=== PATIENT | female | born 1945 | race Caucasian/White ===

== ENCOUNTER 2017-09-08 17:40 | Inpatient (IN) | payer MEDICARE ==
[2017-09-08] MEDS ORDERED: SODIUM CHLORIDE 0.9% 1,000 ML IV ONE (18:13)
[2017-09-08 18:31] LABS: Basophils % (A) 0 %; Eosinophils # (A) 0.2 k/uL (0-0.7); Eosinophils % (A) 2 %; HCT 31.9 % (34.0-46.0); HGB 10.6 gm/dL (11.4-16.0); Lymphocytes % (A) 13 %; MCH 30.1 pg (25.0-35.0); MCHC 33.1 g/dL (31.0-37.0); MCV 91.1 fL (80.0-100.0); Mean Platelet Volume 7.8; Monocytes # (A) 0.3 k/uL (0-1.0); Monocytes % (A) 4 %; Neutrophils # (A) 6.1 k/uL (1.3-7.7); Neutrophils % (A) 80 %; Platelet Count 371 k/uL (150-450); RBC 3.51 m/uL (3.80-5.40); RDW 14.2 % (11.5-15.5); WBC 7.7 k/uL (3.8-10.6)
--- NOTE | 2017-09-08 18:43 | XR ---
EXAMINATION TYPE: XR chest 2V DATE OF EXAM: 09/08/2017 COMPARISON: NONE HISTORY: Syncope. Chest pain. TECHNIQUE: Frontal and lateral views of the chest are obtained. FINDINGS: There is no heart failure nor confluent pneumonic infiltrate. Costophrenic angles are kelsey r. Heart size is normal. Thoracic aorta is atheromatous. There are chest leads. IMPRESSION: No active cardiopulmonary disease.
[2017-09-08 18:44] LABS: Albumin 4.2 g/dL (3.5-5.0); Calcium 10.1 mg/dL (8.4-10.2); Magnesium 1.5 mg/dL (1.6-2.3); Potassium 4.6 mmol/L (3.5-5.1); Total Bilirubin 0.6 mg/dL (0.2-1.3); Total Protein 6.4 g/dL (6.3-8.2)
[2017-09-08 18:52] LABS: Prothrombin Time 10.1 sec (9.0-12.0)
[2017-09-08 18:55] LABS: Partial Thromboplastin Time 19.4 sec (22.0-30.0)
[2017-09-08 18:58] LABS: Creatine Kinase MB 0.8 ng/mL (0.0-2.4); Troponin I <0.012 ng/mL (0.000-0.034)
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
[2017-09-08] MEDS ORDERED: PANTOPRAZOLE 40 MG/10 ML VIAL IVP ONE (20:13)
[2017-09-08] MEDS ORDERED: NALOXONE 0.4 MG/ML 1 ML VIAL IV PRN (20:16)
[2017-09-08] MEDS ORDERED: ACETAMINOPHEN TAB 325 MG TAB PO PRN (21:22)
[2017-09-08 21:41] LABS: Appearance,Urine Clear (Clear); Bacteria,Urine Occasional /hpf; Bilirubin,Urine Negative (Negative); Blood,Urine Negative (Negative); Color,Urine Light Yellow; Glucose,Urine (UA) Negative (Negative); Hyaline Casts,Urine 5 /lpf (0-2); Ketones,Urine Negative (Negative); Leukocyte Esterase,Urine Small (Negative); Mucus,Urine Rare /hpf; Nitrite,Urine Positive (Negative); Protein,Urine Negative (Negative); RBC,Urine 4 /hpf (0-5); Specific Gravity,Urine 1.009 (1.001-1.035); Squamous Epithelial Cell,Urine <1 /hpf (0-4); Urobilinogen,Urine <2.0 mg/dL (<2.0); WBC,Urine 16 /hpf (0-5)
[2017-09-08 21:41] LABS: Glucose,Whole Blood 115 mg/dL (75-99)
[2017-09-08 21:44] VITALS: BMI 28.2
[2017-09-08 21:45] LABS: Amphetamine Screen,Urine Not Detected (NotDetected); Barbiturate Screen,Urine Not Detected (NotDetected); Benzodiazepines Screen,Urine Not Detected (NotDetected); Cocaine Screen,Urine Not Detected (NotDetected); Methadone Screen, Urine Not Detected (NotDetected); Opiate Screen,Urine Not Detected (NotDetected); Oxycodone Screen, Urine Not Detected (NotDetected); Phencyclidine Screen,Urine Not Detected (NotDetected); Tricyclic Antidepressant,Urine Not Detected (NotDetected); Urn Cannabinoid Scrn Not Detected (NotDetected)
[2017-09-08] MEDS ORDERED: MAGNESIUM SULFATE-D5W PMX 1 GM in DEXTROSE/WATER 1 100ML.BAG IVPB ONE (22:13)
[2017-09-08] MEDS: SODIUM CHLORIDE 0.9% 1,000 ML IV SCH (22:15)
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
[2017-09-09 00:14] LABS: HCT 27.7 % (34.0-46.0); HGB 9.2 gm/dL (11.4-16.0); MCHC 33.3 g/dL (31.0-37.0); MCV 90.1 fL (80.0-100.0); Mean Platelet Volume 8.3; Platelet Count 288 k/uL (150-450); RBC 3.07 m/uL (3.80-5.40); RDW 14.2 % (11.5-15.5); WBC 7.4 k/uL (3.8-10.6)
[2017-09-09 07:39] LABS: Glucose,Whole Blood 92 mg/dL (75-99)
[2017-09-09] MEDS: INSULIN ASPART 100 UNIT/ML 1 ML 10 ML VIAL SQ SCH ×4 (07:40→22:12)
[2017-09-09] MEDS: SODIUM CHLORIDE 0.9% 1,000 ML IV SCH ×2 (08:15→17:28)
[2017-09-09] MEDS: ALLOPURINOL 300 MG TAB PO SCH (08:18)
[2017-09-09] MEDS: amLODIPine 5 MG TAB PO SCH (08:18)
[2017-09-09] MEDS: PANTOPRAZOLE 40 MG/10 ML VIAL IVP SCH ×2 (08:18→22:13)
[2017-09-09] MEDS: VENLAFAXINE HCL ER 75 MG CAP PO SCH (08:18)
[2017-09-09 08:51] LABS: Basophils % (A) 1 %; Eosinophils # (A) 0.3 k/uL (0-0.7); Eosinophils % (A) 5 %; HCT 31.9 % (34.0-46.0); HGB 10.4 gm/dL (11.4-16.0); Lymphocytes # (A) 1.8 k/uL (1.0-4.8); Lymphocytes % (A) 27 %; MCH 30.1 pg (25.0-35.0); MCHC 32.5 g/dL (31.0-37.0); MCV 92.6 fL (80.0-100.0); Mean Platelet Volume 7.2; Monocytes # (A) 0.4 k/uL (0-1.0); Monocytes % (A) 5 %; Neutrophils % (A) 61 %; Platelet Count 381 k/uL (150-450); RBC 3.44 m/uL (3.80-5.40); RDW 14.3 % (11.5-15.5); WBC 6.5 k/uL (3.8-10.6)
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
[2017-09-09 08:59] LABS: Albumin 4.1 g/dL (3.5-5.0); Calcium 9.3 mg/dL (8.4-10.2); Magnesium 1.9 mg/dL (1.6-2.3); Phosphorus 3.6 mg/dL (2.5-4.5); Potassium 4.3 mmol/L (3.5-5.1); Total Bilirubin 0.5 mg/dL (0.2-1.3); Total Protein 6.2 g/dL (6.3-8.2)
[2017-09-09] MEDS ORDERED: LISINOPRIL 20 MG TAB PO SCH (09:00)
[2017-09-09 11:43] LABS: Glucose,Whole Blood 100 mg/dL (75-99)
--- NOTE | 2017-09-09 12:17 | P.PN ---
Subjective Progress Note Date: 09/09/17 The patient is feeling better today is not reporting any lightheadedness or feelings of presyncope. Per history it appears that the patient might also have been dehydrated as she was recently moving to a new residence and had no air conditioning over the last few days on it's been extremely hot. The patient then presented with syncope lightheadedness and feeling weak and was found to be anemic with heme positive stools and denies any abdominal pain or nausea Objective - Vital Signs Vital signs: Vital Signs Temp 97.7 F 09/09/17 06:19 Pulse 76 09/09/17 06:19 Resp 16 09/09/17 06:19 BP 120/63 09/09/17 06:19 Pulse Ox 97 09/09/17 06:19 Intake & Output 09/08/17 09/09/17 09/09/17 18:59 06:59 18:59 Weight 79.379 kg 77 kg Other: # Voids 1 - Exam Constitutional: No acute distress, conversant, pleasant Eyes: Anicteric sclerae, moist conjunctiva, no lid-lag, PERRLA ENMT: NC/AT,Oropharynx clear, no erythema, exudates Neck:Supple, FROM, no masses, or JVD, No carotid bruits; No thyromegaly Lungs: Clear to auscultation, Clear to percussion, Normal respiratory effort, no accessory muscle use Cardiovascular: Heart regular in rate and rhythm, No murmurs, gallops, or rubs no peripheral edema Abdominal: Soft Nontender, nom distended, no guarding, no rebound or rigidity, Normoactive bowel sounds No hepatomegaly, No splenomegaly, No palpable mass No abdominal wall hernia noted Skin: Normal temperature, tone, texture, turgor, No induration No subcutaneous nodules, No rash, lesions, No ulcers Extremities:No digital cyanosis No clubbing, Pedal pulses intact and symmetrical Radial pulses intact and symmetrical Normal gait and station, No calf tenderness Psychiatric: Alert and oriented to person, place and time, Appropriate affect Intact judgement Neuro: Muscles Strength 5/5 in all 4 extremities, Sensation to light touch grossly present throughout, Cranial nerves II-XII grossly intact. No focal sensory deficits - Labs CBC & Chem 7: 09/09/17 08:38 09/09/17 08:38 Labs: Abnormal Lab Results - Last 24 Hours (Table) 09/08/17 09/08/17 09/08/17 Range/Units 17:55 17:55 17:55 RBC 3.51 L (3.80-5.40) m/uL Hgb 10.6 L (11.4-16.0) gm/dL Hct 31.9 L (34.0-46.0) % APTT 19.4 L (22.0-30.0) sec BUN 30 H (7-17) mg/dL Creatinine 1.40 H (0.52-1.04) mg/dL Glucose 166 H (74-99) mg/dL POC Glucose (mg/dL) (75-99) mg/dL Magnesium 1.5 L (1.6-2.3) mg/dL Total Protein (6.3-8.2) g/dL Urine Nitrite (Negative) Ur Leukocyte Esterase (Negative) Urine WBC (0-5) /hpf Urine Bacteria (None) /hpf Hyaline Casts (0-2) /lpf Urine Mucus (None) /hpf Stool Occult Blood (Negative) 09/08/17 09/08/17 09/08/17 Range/Units 20:08 21:18 21:39 RBC (3.80-5.40) m/uL Hgb (11.4-16.0) gm/dL Hct (34.0-46.0) % APTT (22.0-30.0) sec BUN (7-17) mg/dL Creatinine (0.52-1.04) mg/dL Glucose (74-99) mg/dL POC Glucose (mg/dL) 115 H (75-99) mg/dL Magnesium (1.6-2.3) mg/dL Total Protein (6.3-8.2) g/dL Urine Nitrite Positive H (Negative) Ur Leukocyte Esterase Small H (Negative) Urine WBC 16 H (0-5) /hpf Urine Bacteria Occasional H (None) /hpf Hyaline Casts 5 H (0-2) /lpf Urine Mucus Rare H (None) /hpf Stool Occult Blood Positive H (Negative) 09/08/17 09/09/17 09/09/17 Range/Units 23:57 08:38 08:38 RBC 3.07 L 3.44 L (3.80-5.40) m/uL Hgb 9.2 L 10.4 L (11.4-16.0) gm/dL Hct 27.7 L 31.9 L (34.0-46.0) % APTT (22.0-30.0) sec BUN 23 H (7-17) mg/dL Creatinine (0.52-1.04) mg/dL Glucose (74-99) mg/dL POC Glucose (mg/dL) (75-99) mg/dL Magnesium (1.6-2.3) mg/dL Total Protein 6.2 L (6.3-8.2) g/dL Urine Nitrite (Negative) Ur Leukocyte Esterase (Negative) Urine WBC (0-5) /hpf Urine Bacteria (None) /hpf Hyaline Casts (0-2) /lpf Urine Mucus (None) /hpf Stool Occult Blood (Negative) 09/09/17 Range/Units 11:38 RBC (3.80-5.40) m/uL Hgb (11.4-16.0) gm/dL Hct (34.0-46.0) % APTT (22.0-30.0) sec BUN (7-17) mg/dL Creatinine (0.52-1.04) mg/dL Glucose (74-99) mg/dL POC Glucose (mg/dL) 100 H (75-99) mg/dL Magnesium (1.6-2.3) mg/dL Total Protein (6.3-8.2) g/dL Urine Nitrite (Negative) Ur Leukocyte Esterase (Negative) Urine WBC (0-5) /hpf Urine Bacteria (None) /hpf Hyaline Casts (0-2) /lpf Urine Mucus (None) /hpf Stool Occult Blood (Negative) Assessment and Plan (1) JORGE (acute kidney injury) Narrative/Plan: * Likely prerenal due to dehydration now resolved creatinine back to baseline * Continue with normal saline hydration Current Visit: Yes Status: Resolved Code(s): N17.9 - ACUTE KIDNEY FAILURE, UNSPECIFIED SNOMED Code(s): 32856731 (2) GI bleed Narrative/Plan: * Concern for possible gastritis although patient denies any pain GI consulted to perform EGD likely later today * Continue with Protonix * Possibly related to ongoing NSAID use Current Visit: Yes Status: Acute Code(s): K92.2 - GASTROINTESTINAL HEMORRHAGE, UNSPECIFIED SNOMED Code(s): 07775271 (3) NSAID long-term use Current Visit: Yes Status: Acute Code(s): Z79.1 - USP (CURRENT) USE OF NON-STEROIDAL NON-INFLAM (NSAID) SNOMED Code(s): 265027602 (4) Pre-syncope Narrative/Plan: * Likely secondary to dehydration but will complete workup by checking an echocardiogram and carotid Dopplers Current Visit: Yes Status: Acute Code(s): R55 - SYNCOPE AND COLLAPSE SNOMED Code(s): 251060391 (5) Anemia Narrative/Plan: * Review of records indicated the patient has a chronic anemia * Iron studies pending Current Visit: Yes Status: Acute Code(s): D64.9 - ANEMIA, UNSPECIFIED SNOMED Code(s): 142387306 Plan: Follow-up EGD results, iron studies, echocardiogram and carotid Dopplers Anticipate discharge in 1 day
[2017-09-09] MEDS ORDERED: PROPOFOL 10 MG/ML 20 ML VIAL IV ONE (15:50)
[2017-09-09] MEDS ORDERED: LIDOCAINE 1% INJ 10MG/ML (20 ML MDV) ONE (15:50)
[2017-09-09] MEDS ORDERED: IV FLUID CONTINUATION 200 ML IV ONE (15:51)
[2017-09-09 16:14] LABS: Iron Saturation 11.43 (12.00-45.00)
--- NOTE | 2017-09-09 16:26 | P.PCN ---
Date of Procedure: 09/09/17 Procedure(s) Performed: Procedure: Esophagogastroduodenoscopy and biopsy. Preoperative diagnosis: GI bleeding. Postoperative diagnosis: 1. Gastritis and gastric ulcers and erosions, probably NSAID related, not actively bleeding at the time of this exam. 2. Biopsies obtained from the antrum to rule out H. pylori infection. Preparation and sedation: Was provided by anesthesia. Brief clinical history: the patient is a 72-year-old female with a history of chronic NSAID usage for leg pain admitted with acute onset lightheadedness weakness presyncope 1 day followed by passage of large black-colored bowel movement yesterday. She has no history GI bleeds. No history of EGD. Last colonoscopy about 6 months ago at [facility] to her memory was unremarkable. She has been taking one tablet of Aleve daily for years for leg pain however with the last months she's increase to 2 tablets daily. No alcohol. No other NSAID or aspirin usage other than her prescribed baby aspirin daily. Denies abdominal pain fever chills weight loss. Admission hemoglobin 10.6 presently 9.2. MCV 91. Platelet 288. BUN 30. Creatinine 1.4. Stool occult blood positive. Procedure: With the patient on her left lateral decubitus position and after informed consent and adequate sedation, I passed the Olympus-GIF 160 video upper endoscope through the cricopharyngeus down the esophagus. The esophagus appeared healthy with no erosions, ulcers, strictures or Hull's esophagus. The endoscope was then passed into the stomach which was insufflated with air and inspected in detail including the retroflex view in the cardia. There was mottling and erythema in the antrum and several linear erosions and superficial ulcerations in the body of the stomach along the greater curvature covered with dark exudate but no active bleeding. Pyloric channel, duodenal bulb, post bulbar area and descending duodenum appeared within normal limits. I obtained biopsies from the antrum before the endoscope was withdrawn. The patient tolerated the procedure well. Plan: The patient was reassured. Will allow liquid diet. Await biopsy results continue PPI and consideration can be given for ongoing treatment in the future especially if she needs to stay on NSAIDs.
[2017-09-09 17:07] LABS: Glucose,Whole Blood 72 mg/dL (75-99)
[2017-09-09 17:42] LABS: HCT 30.2 % (34.0-46.0); HGB 10.3 gm/dL (11.4-16.0); MCV 91.2 fL (80.0-100.0); Mean Platelet Volume 7.7; Platelet Count 304 k/uL (150-450); RBC 3.32 m/uL (3.80-5.40); RDW 14.1 % (11.5-15.5)
[2017-09-09 21:04] LABS: Glucose,Whole Blood 123 mg/dL (75-99)
--- NOTE | 2017-09-09 21:58 | US ---
EXAMINATION TYPE: US carotid duplex BILAT DATE OF EXAM: 09/09/2017 COMPARISON: NONE CLINICAL HISTORY: syncope. EXAM MEASUREMENTS: RIGHT: Peak Systolic Velocity (PSV) cm/sec ----- Right CCA: 77.9 ----- Right ICA: 75.0 ----- Right ECA: 86.1 ICA/CCA ratio: 1.0 RIGHT: End Diastole cm/sec ----- Right CCA: 18.0 ----- Right ICA: 19.5 ----- Right ECA: 7.4 LEFT: Peak Systolic Velocity (PSV) cm/sec ----- Left CCA: 64.0 ----- Left ICA: 86.4 ----- Left ECA: 108.0 ICA/CCA ratio: 1.3 LEFT: End Diastole cm/sec ----- Left CCA: 12.1 ----- Left ICA: 22.6 ----- Left ECA: 4.9 VERTEBRALS (direction of flow): Right Vertebral: Antegrade Left Vertebral: Antegrade Rhythm: Normal Mild atherosclerotic changes, no significant velocity elevations. IMPRESSION: There is antegrade flow in the vertebral arteries. The images and measurements suggest l ess than 25% stenosis in both internal carotid arteries. Criteria for Assigning % of Stenosis / Diameter reduction (Estimation based on the indirect measurements of the internal carotid artery velocities (ICA PSV). 1. Normal (no stenosis)=ICA PSV < 125 cm/s: ratio < 2.0: ICA EDV<40 cm/s. 2. Less than 50% stenosis=ICA PSV < 125 cm/s: ratio < 2.0: ICA EDV<40 cm/s. 3. 50 to 69% stenosis=ICA PSV of 125 to 230 cm/s: ration 2.0 ? 4.0: ICA EDV 40-100 cm/s. 4. Greater than 70% stenosis to near occlusion= ICA PSV > 230 cm/s: ratio > 4.0: ICA EDV > 100 cm/s. 5. Near occlusion= ICA PSV velocities may be low or undetectable: variable ratio and ICA EDV. 6. Total occlusion=unable to detect flow.
[2017-09-09 23:59] LABS: HCT 28.3 % (34.0-46.0); HGB 9.3 gm/dL (11.4-16.0); MCHC 32.9 g/dL (31.0-37.0); Mean Platelet Volume 7.7; Platelet Count 317 k/uL (150-450); RBC 3.12 m/uL (3.80-5.40); RDW 14.2 % (11.5-15.5); WBC 7.7 k/uL (3.8-10.6)
[2017-09-10 01:53] VITALS: TEMP 98.6
[2017-09-10] MEDS: SODIUM CHLORIDE 0.9% 1,000 ML IV SCH ×2 (03:44→14:53)
[2017-09-10 07:00] VITALS: RESP 16
[2017-09-10 07:33] LABS: Glucose,Whole Blood 100 mg/dL (75-99)
[2017-09-10] MEDS: INSULIN ASPART 100 UNIT/ML 1 ML 10 ML VIAL SQ SCH ×3 (08:02→17:46)
--- NOTE | 2017-09-10 08:10 | P.PN ---
Subjective Progress Note Date: 09/10/17 Principal diagnosis: Acute GI bleed Status post EGD superficial gastric ulcers nonbleeding suspect NSAID induced. Feels better. No bleeding. Tolerating full liquids. Objective - Vital Signs Vital signs: Vital Signs Temp 98.6 F 09/10/17 06:59 Pulse 73 09/10/17 06:59 Resp 16 09/10/17 06:59 BP 135/71 09/10/17 06:59 Pulse Ox 95 09/10/17 06:59 Intake & Output 09/09/17 09/10/17 09/10/17 18:59 06:59 18:59 Intake Total 700 Balance 700 Weight 77 kg 77 kg Intake: IV 100 Intake, IV Titration 600 Amount Sodium Chloride 0.9% 1, 600 000 ml @ 100 mls/hr IV . Q10H QUIRINO Rx#:[id number] Other: # Voids 3 3 - Exam General appearance: The patient is alert, oriented, in no acute distress. HET: Head is normocephalic and atraumatic. Pupils are equal and reactive. Oropharynx is clear without lesions. Neck: Supple without lymphadenopathy. Trachea midline. Heart: S1 S2. Regular rate and rhythm. Lungs: No crackles or wheezes are heard. Abdomen: Soft, nontender, nondistended with bowel sounds. No peritoneal signs. No palpable organomegaly or masses. Extremities: Normal skin color and turgor. No cyanosis, rash, ulceration, clubbing, or edema. Radial and pedal pulses are 2/4 bilaterally. Neurological: No focal deficits. Strength and sensation are grossly intact. - Labs CBC & Chem 7: 09/09/17 23:35 09/09/17 08:38 Labs: Abnormal Lab Results - Last 24 Hours (Table) 09/09/17 09/09/17 09/09/17 Range/Units 08:38 08:38 08:38 RBC 3.44 L (3.80-5.40) m/uL Hgb 10.4 L (11.4-16.0) gm/dL Hct 31.9 L (34.0-46.0) % BUN 23 H (7-17) mg/dL POC Glucose (mg/dL) (75-99) mg/dL Iron 36 L (50-170) ug/dL Iron Saturation 11.43 L (12.00-45.00) Total Protein 6.2 L (6.3-8.2) g/dL 09/09/17 09/09/17 09/09/17 Range/Units 11:38 16:35 17:07 RBC 3.32 L (3.80-5.40) m/uL Hgb 10.3 L (11.4-16.0) gm/dL Hct 30.2 L (34.0-46.0) % BUN (7-17) mg/dL POC Glucose (mg/dL) 100 H 72 L (75-99) mg/dL Iron (50-170) ug/dL Iron Saturation (12.00-45.00) Total Protein (6.3-8.2) g/dL 09/09/17 09/09/17 09/10/17 Range/Units 21:02 23:35 07:25 RBC 3.12 L (3.80-5.40) m/uL Hgb 9.3 L (11.4-16.0) gm/dL Hct 28.3 L (34.0-46.0) % BUN (7-17) mg/dL POC Glucose (mg/dL) 123 H 100 H (75-99) mg/dL Iron (50-170) ug/dL Iron Saturation (12.00-45.00) Total Protein (6.3-8.2) g/dL Assessment and Plan (1) Melena Narrative/Plan: Status post EGD superficial nonbleeding gastric ulcers most likely NSAID- induced. Current Visit: Yes Status: Acute Code(s): K92.1 - MELENA SNOMED Code(s): 3702767 (2) Acute blood loss anemia Current Visit: Yes Status: Acute Code(s): D62 - ACUTE POSTHEMORRHAGIC ANEMIA SNOMED Code(s): 454262757 (3) NSAID long-term use Current Visit: Yes Status: Acute Code(s): Z79.1 - RESOURCE E[employer] MANAGER (CURRENT) USE OF NON-STEROIDAL NON-INFLAM (NSAID) SNOMED Code(s): 875735043 (4) GI bleed Current Visit: Yes Status: Acute Code(s): K92.2 - GASTROINTESTINAL HEMORRHAGE, UNSPECIFIED SNOMED Code(s): 83035131 Plan: 1. No NSAIDs. Protonix 40 mg daily will provide prescription. Return to office in 3-4 weeks for reevaluation. Discharge per medicine. Light diet for the next 1-2 days. Assessment and plan a care discussed with Dr. Johnson
[2017-09-10] MEDS: ALLOPURINOL 300 MG TAB PO SCH (08:33)
[2017-09-10] MEDS: VENLAFAXINE HCL ER 75 MG CAP PO SCH (08:33)
[2017-09-10] MEDS: amLODIPine 5 MG TAB PO SCH (08:33)
[2017-09-10] MEDS: PANTOPRAZOLE 40 MG/10 ML VIAL IVP SCH (08:33)
--- NOTE | 2017-09-10 10:59 | P.DS ---
Providers Date of admission: 09/08/17 20:17 Expected date of discharge: 09/10/17 Attending physician: Cynthia Escobar MD Primary care physician: Soren Stringer - [place] Diagnosis(es) (1) Gastric ulcer due to nonsteroidal anti-inflammatory drug (NSAID) Current Visit: Yes Status: Acute (2) JORGE (acute kidney injury) Current Visit: Yes Status: Resolved (3) GI bleed Current Visit: Yes Status: Acute (4) Iron deficiency anemia Current Visit: Yes Status: Acute (5) Pre-syncope Current Visit: Yes Status: Acute (6) NSAID long-term use Current Visit: Yes Status: Acute Hospital Course: The patient is a 72-year-old female with a history of chronic NSAID usage for leg pain that presented and was admitted for presyncope and was found to be in acute kidney injury prerenal etiology secondary to dehydration, she was started on gentle hydration and her creatinine normalized, the patient was also noted to be anemic and with a positive Hemoccult was thought to have upper GI bleed. She was started on Protonix and GI was consulted and EGD performed showed superficial gastric ulcers with no active bleeding and gastritis. Review of her records indicates the patient has a chronic anemia and iron studies were consistent with iron deficiency anemia and she was started on ferrous sulfate. Further workup of her presyncope with carotid Dopplers and echocardiogram was negative. The patient was counseled extensively that avoiding any and said he use for chronic pain and to rather use acetaminophen instead. The patient's diet was advanced and she was subsequently discharged with plans for her to return to GI clinic in 3-4 weeks for reevaluation. She was discharged home in stable condition and also instructed to follow-up with her PCP in 2-3 days. This discharge process took approximately 35 minutes Prescriptions of discharge include Protonix and ferrous sulfate Constitutional: No acute distress, conversant, pleasant Eyes: Anicteric sclerae, moist conjunctiva, no lid-lag, PERRLA ENMT: NC/AT,Oropharynx clear, no erythema, exudates Neck:Supple, FROM, no masses, or JVD, No carotid bruits; No thyromegaly Lungs: Clear to auscultation, Clear to percussion, Normal respiratory effort, no accessory muscle use Cardiovascular: Heart regular in rate and rhythm, No murmurs, gallops, or rubs no peripheral edema Abdominal: Soft Nontender, nom distended, no guarding, no rebound or rigidity, Normoactive bowel sounds No hepatomegaly, No splenomegaly, No palpable mass No abdominal wall hernia noted Skin: Normal temperature, tone, texture, turgor, No induration No subcutaneous nodules, No rash, lesions, No ulcers Extremities:No digital cyanosis No clubbing, Pedal pulses intact and symmetrical Radial pulses intact and symmetrical Normal gait and station, No calf tenderness Psychiatric: Alert and oriented to person, place and time, Appropriate affect Intact judgement Neuro: Muscles Strength 5/5 in all 4 extremities, Sensation to light touch grossly present throughout, Cranial nerves II-XII grossly intact. No focal sensory deficits Patient Condition at Discharge: Stable Plan - Discharge Summary Discharge Rx Participant: Yes New Discharge Prescriptions: New Pantoprazole [Protonix] 40 mg PO DAILY #30 tablet. Ferrous Sulfate [Iron (65 MG Elemental)] 325 mg PO BID-W/MEALS #60 tab Continue Aspirin EC [Ecotrin Low Dose] 81 mg PO HS Lisinopril 40 mg PO DAILY metFORMIN HCL [Glucophage] 500 mg PO TID amLODIPine [Norvasc] 5 mg PO DAILY Hydrochlorothiazide [Hydrodiuril] 12.5 mg PO DAILY Venlafaxine HCl ER [Effexor XR] 75 mg PO DAILY Allopurinol [Zyloprim] 300 mg PO DAILY Cholecalciferol [Vitamin D3] 5,000 unit PO DAILY Multivit-Min/Iron/Folic/Lutein [Centrum Silver Women Tablet] 1 tab PO DAILY Discharge Medication List Aspirin EC [Ecotrin Low Dose] 81 mg PO HS 07/18/14 [History] Hydrochlorothiazide [Hydrodiuril] 12.5 mg PO DAILY 07/18/14 [History] Lisinopril 40 mg PO DAILY 07/18/14 [History] amLODIPine [Norvasc] 5 mg PO DAILY 07/18/14 [History] metFORMIN HCL [Glucophage] 500 mg PO TID 07/18/14 [History] Venlafaxine HCl ER [Effexor XR] 75 mg PO DAILY 07/26/14 [History] Allopurinol [Zyloprim] 300 mg PO DAILY 09/08/17 [History] Cholecalciferol [Vitamin D3] 5,000 unit PO DAILY 09/08/17 [History] Multivit-Min/Iron/Folic/Lutein [Centrum Silver Women Tablet] 1 tab PO DAILY [History] Ferrous Sulfate [Iron (65 MG Elemental)] 325 mg PO BID-W/MEALS #60 tab 09/10/17 [Rx] Pantoprazole [Protonix] 40 mg PO DAILY #30 tablet. 09/10/17 [Rx] Follow up Appointment(s)/Referral(s): Fracisco Johnson MD [STAFF PHYSICIAN] - 10/02/17 2:15 pm
[2017-09-10 11:44] LABS: Glucose,Whole Blood 105 mg/dL (75-99)
--- NOTE | 2017-09-10 11:58 | ECHOF ---
Referral Reason:syncope MEASUREMENTS -------- HEIGHT: 165.1 cm WEIGHT: 76.7 kg BP: 120/63 RVIDd: 2.9 cm (< 3.3) IVSd: 1.0 cm (0.6 - 1.1) LVIDd: 3.2 cm (3.9 - 5.3) LVPWd: 1.0 cm (0.6 - 1.1) IVSs: 1.4 cm LVIDs: 2.2 cm LVPWs: 1.4 cm LAESV Index (A-L): 33.76 ml/m Ao Diam: 2.9 cm (2.0 - 3.7) AV Cusp: 1.9 cm (1.5 - 2.6) LA Diam: 3.6 cm (2.7 - 3.8) EPSS: 0.5 cm MV E Justin: 0.78 m/s MV DecT: 307 ms MV A Justin: 1.04 m/s MV E/A Ratio: 0.75 RAP: 5.00 mmHg RVSP: 29.45 mmHg MV EF SLOPE: 53.87 mm/s (70 - 150) MV EXCURSION: 1.14 cm (> 18.000) FINDINGS -------- Sinus rhythm. This was a technically adequate study. The left ventricular size is normal. Left ventricular wall thickness is normal. Overall left vent ricular systolic function is normal with, an EF between 55 - 60 %. The right ventricle is normal in size and function. Normal LA size by volume 22+/-6 ml/m2. The right atrium is normal in size. Aortic valve is trileaflet and is mildly thickened. There is no evidence of aortic regurgitation. There is no evidence of aortic stenosis. The mitral valve leaflets are mildly thickened. There is trace to mild mitral regurgitation. Trace tricuspid regurgitation present. Right ventricular systolic pressure is normal at < 35 mmHg. There is no evidence of pulmonary hypertension. Trace/mild (physiologic) pulmonic regurgitation. The aortic root size is normal. Normal inferior vena cava with normal inspiratory collapse consistent with estimated right atrial pre ssure of 5 mmHg. There is no pericardial effusion. CONCLUSIONS -------- 1. Sinus rhythm. 2. This was a technically adequate study. 3. The left ventricular size is normal. 4. Left ventricular wall thickness is normal. 5. Overall left ventricular systolic function is normal with, an EF between 55 - 60 %. 6. Normal LA size by volume 22+/-6 ml/m2. 7. Aortic valve is trileaflet and is mildly thickened. 8. The mitral valve leaflets are mildly thickened. 9. There is trace to mild mitral regurgitation. 10. Trace tricuspid regurgitation present. 11. Right ventricular systolic pressure is normal at < 35 mmHg. 12. There is no evidence of pulmonary hypertension. 13. Trace/mild (physiologic) pulmonic regurgitation. 14. The aortic root size is normal. 15. There is no pericardial effusion. PRETZEL TWISTER: Doyle Herrera RDCS
[2017-09-10 16:07] VITALS: BP 117/63; PULSE 78
[2017-09-10 17:27] LABS: Glucose,Whole Blood 108 mg/dL (75-99)
[2017-09-10] MEDS ORDERED: FERROUS SULFATE 325 MG TAB PO SCH (17:30)
[2017-09-10] MEDS ORDERED: PANTOPRAZOLE 40 MG TABLET PO SCH (17:30)
== END 2017-09-10 18:31 | disposition home or self-care (01) | DRG 378 ==
LOC: EC 17:40 → 4MS4W 20:17
PROVIDERS: ADMIT Internal Medicine; ATTEND Internal Medicine
PROC: 0DB78ZX Excision of Stomach, Pylorus, Via Natural or Artificial Opening Endoscopic, Diagnostic (ICD-10-PCS; principal; 2017-09-09 07:30)
DX: K25.4 Chronic or unspecified gastric ulcer with hemorrhage (principal); N17.9 Acute kidney failure, unspecified; E83.42 Hypomagnesemia; D50.9 Iron deficiency anemia, unspecified; K29.71 Gastritis, unspecified, with bleeding; K59.00 Constipation, unspecified; E11.9 Type 2 diabetes mellitus without complications; E86.0 Dehydration; E78.5 Hyperlipidemia, unspecified; M19.90 Unspecified osteoarthritis, unspecified site; R25.2 Cramp and spasm; T39.395A Adverse effect of other nonsteroidal anti-inflammatory drugs [NSAID], initial encounter; I10 Essential (primary) hypertension; F32.9 Major depressive disorder, single episode, unspecified; G89.29 Other chronic pain; E07.9 Disorder of thyroid, unspecified; M54.2 Cervicalgia; Z79.82 Long term (current) use of aspirin; Z90.710 Acquired absence of both cervix and uterus; Z82.0 Family history of epilepsy and other diseases of the nervous system; Z79.899 Other long term (current) drug therapy; Z79.84 Long term (current) use of oral hypoglycemic drugs; Z80.9 Family history of malignant neoplasm, unspecified; Z98.84 Bariatric surgery status; Z96.651 Presence of right artificial knee joint; Z87.828 Personal history of other (healed) physical injury and trauma; Z86.11 Personal history of tuberculosis; Z87.442 Personal history of urinary calculi; Z87.09 Personal history of other diseases of the respiratory system; Z79.1 Long term (current) use of non-steroidal anti-inflammatories (NSAID)
CPT/HCPCS: 36415; 43239; 71046; 80053; 80306; 81001; 82272; 82553; 82728; 83036; 83540; 83550; 83690; 83735; 83880; 84100; 84484; 85025; 85027; 85610; 85730; 86850; 86900; 86901; 88305; 93005; 93306; 93880; 96361; 96374; 99285

== ENCOUNTER → 2018-04-07 | Outpatient (CLI) | payer MEDICARE ==
--- NOTE | 2018-04-07 14:47 | CT ---
EXAMINATION TYPE: CT abdomen wo/w con DATE OF EXAM: 04/07/2018 HISTORY: renal cysts CT DLP: 1372mGycm Automated Exposure Control for Dose Reduction was Utilized. CONTRAST: CT scan of the abdomen is performed without and with IV Contrast, patient injected with 80 mL of Isov ue 300. COMPARISON: None. FINDINGS: LUNG BASES: No significant abnormality is appreciated. LIVER/GB: Hepatic parenchyma enhances homogeneously. There is no evidence of cholelithiasis. PANCREAS: No significant abnormality is seen. No pancreatic ductal dilatation. SPLEEN: No significant abnormality is seen. No splenomegaly. ADRENALS: No significant abnormality is seen. No nodularity or thickening. KIDNEYS: There is a hyperdense 1.4 cm left renal posterior midpole lesion that does not demonstrate s uspicious enhancement with a precontrast Hounsfield unit of 64 and postcontrast Hounsfield unit of 59 . Delayed imaging demonstrates Hounsfield unit of 74 (minimal enhancement on delayed imaging). Additi onally on the left there are 2 exophytic probable cysts of the lower pole and midpole on series 7 erin ge 31 and image 29 measuring 9 mm and 8 mm respectively. No left-sided nephrolithiasis or hydronephro sis. There is a right-sided nonobstructing calculus in the midpole measuring 3 mm. No right-sided hydronep hrosis. No gross evidence of uroepithelial thickening is seen. BOWEL: There is a partial gastrectomy there is been performed with possible reversal or fistula as co ntrast is seen in the [place] gastric stomach as well as the gastric sleeve. LYMPH NODES: No greater than 1cm abdominal or pelvic lymph nodes are appreciated. OSSEOUS STRUCTURES: There is extensive degenerative change of the visualized thoracolumbar spine as t here is osseous fusion of the L2 and L3 vertebral bodies and extensive intervertebral disc space loss of the upper lumbar spine. There is minimal retrolisthesis of L2 on L3 and L3 on L4 with anterolisth esis that is grade 1 of L4 on L5. IMPRESSION: 1. Although the 1.4 cm hyperdense left renal lesion technically meets criteria for Bosniak 2 (benign) there is mild enhancement on delayed imaging and therefore precautionary short-term six-month follow -up is recommended to ensure stability. Alternatively renal ultrasound could assess for increased or transmission of a proteinaceous/hemorrhagic cyst. 2. Bilateral benign Bosniak 1 simple cysts. 3. Extensive degenerative changes of the lumbar spine as described above.
== END | disposition home or self-care (01) ==
LOC: RADCTMAIN 12:45
PROVIDERS: ATTEND Urology
DX: N28.1 Cyst of kidney, acquired (principal); Z88.1 Allergy status to other antibiotic agents
CPT/HCPCS: 82565; 84520; 74170; 36415; Q9967

== ENCOUNTER 2018-07-14 17:38 | Emergency (ER) | payer MEDICARE ==
[2018-07-14 18:09] VITALS: TEMP 97.9
[2018-07-14] MEDS ORDERED: diphenhydrAMINE 50 MG/ML 1 ML VIAL IVP STA (18:28)
[2018-07-14] MEDS ORDERED: KETOROLAC 30 MG/ML 1 ML VIAL IVP STA ×2 (18:28→19:55)
[2018-07-14] MEDS ORDERED: SODIUM CHLORIDE 0.9% 1,000 ML IV STA ×2 (18:28)
[2018-07-14] MEDS ORDERED: METOCLOPRAMIDE 5 MG/ML 2 ML VIAL IVP STA (18:28)
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
[2018-07-14 19:08] LABS: Basophils % (A) 1 %; Eosinophils # (A) 0.1 k/uL (0-0.7); Eosinophils % (A) 2 %; HCT 35.4 % (34.0-46.0); HGB 11.8 gm/dL (11.4-16.0); Lymphocytes # (A) 1.1 k/uL (1.0-4.8); Lymphocytes % (A) 17 %; MCH 28.7 pg (25.0-35.0); MCHC 33.3 g/dL (31.0-37.0); Mean Platelet Volume 7.2; Monocytes # (A) 0.3 k/uL (0-1.0); Monocytes % (A) 5 %; Neutrophils # (A) 4.5 k/uL (1.3-7.7); Neutrophils % (A) 74 %; Platelet Count 365 k/uL (150-450); RBC 4.12 m/uL (3.80-5.40); RDW 14.4 % (11.5-15.5); WBC 6.1 k/uL (3.8-10.6)
[2018-07-14 19:12] LABS: Albumin 4.4 g/dL (3.5-5.0); Calcium 10.2 mg/dL (8.4-10.2); Potassium 4.6 mmol/L (3.5-5.1); Total Bilirubin 0.4 mg/dL (0.2-1.3); Total Protein 7.1 g/dL (6.3-8.2)
[2018-07-14 19:23] LABS: INR 0.9 (<1.2)
[2018-07-14 19:24] LABS: Prothrombin Time 10.2 sec (9.0-12.0)
[2018-07-14 19:45] LABS: Partial Thromboplastin Time 21.4 sec (22.0-30.0)
--- NOTE | 2018-07-14 19:47 | CT ---
EXAMINATION: CT brain wo con DATE AND TIME: 07/14/2018 7:22 PM CLINICAL INDICATION: PHH; Headache TECHNIQUE: Standard departmental protocol.; 1133.4; COMPARISON: None. FINDINGS: The calvarium is intact. There is no intracranial hemorrhage. There is no intracranial mass or mass e ffect. Nonspecific bilateral centrum semiovale and theodore radiata changes are evident, most evident in the l eft anterior frontal centrum semiovale. In this setting without available comparison CT or MRI, it is difficult to exclude an acute deep white matter attenuation defect. If pretest probability high, wou ld consider MRI characterization. The paranasal sinuses, middle ear cavities, and mastoid sinus air cells are clear. The orbits are unr emarkable. IMPRESSION: No definite acute process, as above.
[2018-07-14 20:26] VITALS: BP 126/65; PULSE 87; RESP 16
== END 2018-07-14 21:20 | disposition home or self-care (01) ==
LOC: EC 17:38
DX: F43.0 Acute stress reaction (principal); R51 Headache; R11.2 Nausea with vomiting, unspecified; E78.5 Hyperlipidemia, unspecified; I10 Essential (primary) hypertension; M19.90 Unspecified osteoarthritis, unspecified site; E07.9 Disorder of thyroid, unspecified; F32.9 Major depressive disorder, single episode, unspecified; Z96.651 Presence of right artificial knee joint; Z79.890 Hormone replacement therapy; Z79.899 Other long term (current) drug therapy; Z53.29 Procedure and treatment not carried out because of patient's decision for other reasons; Z53.8 Procedure and treatment not carried out for other reasons
CPT/HCPCS: 36415; 93005; 80053; 84484; 85025; 85610; 85730; 70450; 99285; 96374; 96375 ×2; 96361 ×2; J1200; J2765; J1885

== ENCOUNTER 2018-10-14 08:54 | Day surgery (SDC) | payer MEDICARE ==
[2018-10-09 15:33] VITALS: BMI 27.8
[~2018-10-14 08:54] MED LIST: DEXAMETHASONE SOD PHOSPHATE 10 MG/ML 1 ML VIAL IV ONE; LACTATED RINGERS 1,000 ML IV SCH; LIDOCAINE 1% 20 ML VIAL (10MG/ML) FOR IV START INTRADERMA PRN; MIDAZOLAM 2 MG/2 ML VIAL IV PRN; MOXIFLOXACIN HCL 0.5% DROPS 3 ML BTL OP ONE; ONDANSETRON 4 MG/2 ML VIAL IVP ONE; TETRACAINE 0.5% OPHTH (PF) DROPS 4 ML BTL OP ONE; TIMOLOL 0.5% OPHTH DROPS 5 ML BTL OP ONE
[2018-10-14] MEDS: CYCLOPENTOLATE 1% OPHTH SOLN 2 ML BTL OP ONE ×3 (10:06→10:24)
[2018-10-14 10:09] VITALS: TEMP 97.1
[2018-10-14] MEDS: PHENYLEPHRINE 2.5% OPHTH DRP 2ML OP NR ×3 (10:10→10:27)
[2018-10-14 10:27] LABS: Glucose,Whole Blood 120 mg/dL (75-99)
[2018-10-14] MEDS ORDERED: MIDAZOLAM 2 MG/2 ML VIAL ONE (10:52)
[2018-10-14] MEDS ORDERED: EPINEPHrine (PF) 0.3 ML in BALANCED SALT IRRIG SOLN COMB2 500 ML IRRIGATION ONE (11:04)
[2018-10-14] MEDS ORDERED: HYALURONATE SODIUM INTRAOCULAR 1 EACH SYRINGE (12MG/ML) INTRAOCULA ONE (11:06)
[2018-10-14] MEDS ORDERED: LIDOCAINE 1% (PF) 10MG/ML VIAL MISCELLANE ONE (11:07)
[2018-10-14] MEDS ORDERED: BALANCED SALT IRRIG SOLN COMB2 15 ML IRRIG.SOLN IRRIGATION ONE (11:07)
--- NOTE | 2018-10-14 11:21 | P.OP ---
Date of Procedure: 10/14/18 Preoperative Diagnosis: NS & CS Postoperative Diagnosis: same Procedure(s) Performed: PIOL, OD Implants: PCB00 24.50 Anesthesia: MAC Surgeon: Gurwinder Velázquez Estimated Blood Loss (ml): 0 Pathology: none sent Condition: stable Disposition: same day Indications for Procedure: blurry vision Operative Findings: no complications
[2018-10-14 11:41] VITALS: RESP 15
[2018-10-14 11:58] VITALS: BP 148/80; PULSE 68
--- NOTE | 2018-10-14 18:25 | OP ---
OPERATIVE REPORT DATE OF SURGERY: October 14, 2018. PROCEDURE PERFORMED: Phacoemulsification of cataract and intraocular lens implant of the right eye MOBILE UI DEVELOPER: PREOPERATIVE DIAGNOSIS: Nuclear sclerosis. Cortical sclerosis. POSTOPERATIVE DIAGNOSIS: Nuclear sclerosis. Cortical sclerosis. OPERATION: Clear cornea phacoemulsification of cataract right OD eye. ESTIMATED BLOOD LOSS: Zero. SPECIMEN TAKEN: None. NARRATIVE: After obtaining the appropriate consent, the patient was brought to the Operating Room where the patient was placed under cardiac monitoring and prepped and draped in the usual sterile manner. At the 11 o'clock position a 15 degree super sharp blade was used to create a paracentesis followed by instillation of 1% Xylocaine MPF 50:50 mix with BSS into the anterior chamber. This was followed by Amvisc to stabilize the anterior chamber. At the 9 o'clock position a self-sealing corneal flap incision was created using 2.8 mm lai keratome. A cystatome was used to initiate a continuous tear capsulorrhexis which was completed with the Utrata forceps. A Binkhorst cannula was used to hydrodissect the lens nucleus followed by hydrodelineation. Phacoemulsification of the lens was performed utilizing phaco-chop in 11.53 seconds at 12% power. The remaining cortical material was removed using the irrigation aspiration mode followed by additional 1% Xylocaine MPF into the anterior chamber followed by viscoelastic to stabilize the capsular bag. A Anand and Anand PZB 0 0 24.5 diopter posterior chamber lens was placed into the capsular bag without difficulty. The remaining viscoelastic material was removed from the anterior chamber with the irrigation/aspiration. Balanced salt solution was used to normalize the intraocular pressure. The incision was checked for watertight integrity. The patient then received two drops of 0.5% timolol followed by two drops Vigamox, was lightly patched and shielded in the usual manner. There were no complications from the procedure. The patient tolerated the procedure well and was returned to recovery in good condition. MMODL / IJN: [id number] /
== END 2018-10-14 12:16 | disposition home or self-care (01) ==
LOC: OR 08:54
PROVIDERS: ATTEND Ophthalmology
DX: H25.11 Age-related nuclear cataract, right eye (principal); H52.01 Hypermetropia, right eye; H52.4 Presbyopia; Z98.84 Bariatric surgery status; I10 Essential (primary) hypertension; E07.9 Disorder of thyroid, unspecified; Z79.890 Hormone replacement therapy; Z79.899 Other long term (current) drug therapy; Z96.659 Presence of unspecified artificial knee joint; Z82.3 Family history of stroke; Z82.49 Family history of ischemic heart disease and other diseases of the circulatory system
CPT/HCPCS: 66984; C1780; J2250; J0171; J2001

== ENCOUNTER 2020-06-12 18:33 | Inpatient (IN) | payer MEDICARE ==
[2020-06-12] MEDS ORDERED: ACETAMINOPHEN TAB 325 MG TAB PO STA (19:13)
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
--- NOTE | 2020-06-12 19:44 | XR ---
EXAMINATION TYPE: XR chest 1V portable DATE OF EXAM: 06/12/2020 COMPARISON: 09/08/2017. HISTORY: Fever. TECHNIQUE: Single frontal view of the chest is obtained. FINDINGS: There is no focal air space opacity, pleural effusion, or pneumothorax seen. The cardiac silhouette size is within normal limits. The osseous structures are intact. IMPRESSION: No acute process.
[2020-06-12 20:59] LABS: Basophils % (A) 0 %; Eosinophils # (A) 0.1 k/uL (0-0.7); Eosinophils % (A) 0 %; HCT 39.1 % (34.0-46.0); HGB 12.6 gm/dL (11.4-16.0); Lymphocytes # (A) 0.2 k/uL (1.0-4.8); Lymphocytes % (A) 2 %; MCH 28.7 pg (25.0-35.0); MCHC 32.3 g/dL (31.0-37.0); MCV 88.9 fL (80.0-100.0); Mean Platelet Volume 7.8; Monocytes # (A) 0.3 k/uL (0-1.0); Monocytes % (A) 2 %; Neutrophils # (A) 15.2 k/uL (1.3-7.7); Neutrophils % (A) 96 %; Platelet Count 384 k/uL (150-450); RDW 13.7 % (11.5-15.5); WBC 15.8 k/uL (3.8-10.6)
[2020-06-12 21:02] LABS: Partial Thromboplastin Time 22.4 sec (22.0-30.0); Prothrombin Time 10.5 sec (9.0-12.0)
[2020-06-12 21:08] LABS: Albumin 4.2 g/dL (3.5-5.0); C Reactive Protein 16.3 mg/L (<10.0); Calcium 9.4 mg/dL (8.4-10.2); Magnesium 1.5 mg/dL (1.6-2.3); Potassium 4.1 mmol/L (3.5-5.1); Total Bilirubin 0.7 mg/dL (0.2-1.3); Total Protein 6.7 g/dL (6.3-8.2)
[2020-06-12 21:31] LABS: Appearance,Urine Turbid (Clear); Bacteria,Urine Occasional /hpf; Bilirubin,Urine Negative (Negative); Blood,Urine Large (Negative); Budding Yeast,Urine Moderate /hpf; Color,Urine Yellow; Glucose,Urine (UA) Negative (Negative); Hyaline Casts,Urine 34 /lpf (0-2); Ketones,Urine Negative (Negative); Leukocyte Esterase,Urine Large (Negative); Mucus,Urine Moderate /hpf; Nitrite,Urine Negative (Negative); PH, Urine 5.5 (5.0-8.0); Protein,Urine 2+ (Negative); RBC,Urine >182 /hpf (0-5); Squamous Epithelial Cell,Urine 8 /hpf (0-4); WBC,Urine >182 /hpf (0-5)
[2020-06-12] MEDS ORDERED: SODIUM CHLORIDE 0.9% 1,000 ML IV STA ×2 (22:41)
[2020-06-13] MEDS: IBUPROFEN 400 MG TAB PO PRN ×2 (01:16→10:25)
[2020-06-13] MEDS: BACLOFEN 10 MG TAB PO PRN ×2 (01:19→21:47)
[2020-06-13] MEDS ORDERED: traMADol 50 MG TAB PO STA (01:24)
[2020-06-13] MEDS ORDERED: Magnesium Replacement Protocol 1 EACH MISC MISCELLANE PRN (01:25)
[2020-06-13] MEDS: ACETAMINOPHEN TAB 325 MG TAB PO PRN ×2 (01:28→18:04)
[2020-06-13] MEDS: MAGNESIUM SULFATE-D5W PMX 1 GM in DEXTROSE/WATER 1 100ML.BAG IVPB SCH ×2 (01:56→02:54)
[2020-06-13] MEDS: ONDANSETRON 4 MG/2 ML VIAL IVP PRN ×2 (02:13→22:04)
--- NOTE | 2020-06-13 02:49 | XR ---
EXAM: XR Bilateral Hips With Pelvis When Performed, 4 or More Views CLINICAL HISTORY: ITS.REASON XR Reason: pain TECHNIQUE: Four or more views of the bilateral hips with pelvis when performed. COMPARISON: No relevant prior studies available. FINDINGS: Bones/joints: No acute fracture. No dislocation. Mild to moderate bilateral hip osteoarthrosis. Soft tissues: Unremarkable. IMPRESSION: No acute osseous abnormalities.
[2020-06-13] MEDS: PANTOPRAZOLE 40 MG TABLET PO SCH (07:32)
[2020-06-13] MEDS: ATORVASTATIN 80 MG TAB PO SCH (08:55)
[2020-06-13] MEDS: VIT A,C & E-LUTEIN-MINERALS 1 EACH TAB PO SCH (08:55)
[2020-06-13] MEDS: metFORMIN 500 MG TAB PO SCH ×2 (08:55→20:43)
[2020-06-13] MEDS: CHOLECALCIFEROL 25 MCG (1000 IU) TABLET PO SCH (08:55)
[2020-06-13] MEDS: MULTIVITAMINS, THERA 1 EACH TAB PO SCH (08:56)
[2020-06-13] MEDS ORDERED: amLODIPine 5 MG TAB PO SCH (09:00)
[2020-06-13] MEDS ORDERED: NON FORMULARY DRUG (Folic Acid [Folic Acid] 0.4 MG Tablet) PO SCH (09:00)
[2020-06-13] MEDS ORDERED: lisinopriL 20 MG TAB PO SCH (09:00)
[2020-06-13] MEDS ORDERED: ENOXAPARIN 30 MG/0.3 ML SYRINGE SQ SCH (09:00)
--- NOTE | 2020-06-13 11:21 | P.CNOR ---
History of Present Illness - HPI Consult date: 06/13/20 History of present illness: This is a 75-year-old female who is admitted for UTI. Orthopedics is consulted due to bilateral hip pain and patient is seen and evaluated at bedside today. Patient states that her pain has now subsided after passing a kidney stone today. Patient states that she was having pain in her lower back before she passed a kidney stone. Patient denies any previous issues with her hips. Patient denies any fever/chills, numbness, weakness, tingling, abdominal pain, shortness of breath or chest pain. Review of Systems See HPI. Past Medical History Past Medical History: Asthma, Diabetes Mellitus, Eye Disorder, Hyperlipidemia, Hypertension, Osteoarthritis (OA), Thyroid Disorder Additional Past Medical History / Comment(s): PAST HX OF ASTHMA. HX KIDNEY STONES. HX TB W/ TREATMENT. GENE CATARACTS. History of Any Multi-Drug Resistant Organisms: None Reported Past Surgical History: Bariatric Surgery, Hysterectomy, Joint Replacement Additional Past Surgical History / Comment(s): GENE TOTAL KNEE, GASTROPLASTY, BR EAST REDUCTION. Past Anesthesia/Blood Transfusion Reactions: No Reported Reaction Past Psychological History: Anxiety, Depression Smoking Status: Never smoker Past Alcohol Use History: Rare Past Drug Use History: None Reported - Past Family History Father Family Medical History: Cancer Additional Family Medical History / Comment(s): parkinsons Mother Family Medical History: Deep Vein Thrombosis (DVT) Additional Family Medical History / Comment(s): POSSIBLE DVT, UNSURE Medications and Allergies Home Medications Medication Instructions Recorded Confirmed Type amLODIPine [Norvasc] 5 mg PO DAILY 07/18/14 06/12/20 History lisinopriL 40 mg PO DAILY 07/18/14 06/12/20 History Cholecalciferol [Vitamin D3 (25 50 mcg PO DAILY 10/09/18 06/12/20 History Mcg = 1000 Iu)] Folic Acid 0.4 mg PO DAILY 10/09/18 06/12/20 History Multivit-Min/FA/Lycopen/Lutein 1 each PO DAILY 10/09/18 06/12/20 History [Centrum Silver Tablet] Atorvastatin [Lipitor] 80 mg PO DAILY 06/12/20 06/12/20 History Ibuprofen [Motrin Ib] 200 mg PO BID 06/12/20 06/12/20 History Vit C/E/Zn/Coppr/Lutein/Zeaxan 1 tab PO DAILY 06/12/20 06/12/20 History [Preservision Areds 2 Softgel] metFORMIN HCL [Glucophage] 500 mg PO BID 06/12/20 06/12/20 History Allergies Allergy/AdvReac Type Severity Reaction Status Date / Time No Known Allergies Allergy Verified 06/12/20 19:44 Physical Examination Vital signs are stable. Patient is resting comfortably in bed in no acute distress and is alert and oriented 3. Patient has good range of motion of bilateral lower extremities without pain or difficulty. Patient has full foot and ankle motion without pain or difficulty. Sensation intact bilaterally. Neurovascular status and circulatory status are intact. Results X-rays of bilateral hips and pelvis are negative for any fracture or dislocation. - Labs Labs: Abnormal Lab Results - Last 24 Hours (Table) 06/12/20 06/12/20 06/12/20 Range/Units 19:14 19:14 20:13 WBC 15.8 H (3.8-10.6) k/uL Neutrophils # 15.2 H (1.3-7.7) k/uL Lymphocytes # 0.2 L (1.0-4.8) k/uL BUN 26 H (7-17) mg/dL Creatinine 1.60 H (0.52-1.04) mg/dL Glucose 130 H (74-99) mg/dL Magnesium 1.5 L (1.6-2.3) mg/dL C-Reactive Protein 16.3 H (<10.0) mg/L Urine Appearance Turbid H (Clear) Urine Protein 2+ H (Negative) Urine Blood Large H (Negative) Ur Leukocyte Esterase Large H (Negative) Urine RBC >182 H (0-5) /hpf Urine WBC >182 H (0-5) /hpf Urine WBC Clumps Many H (None) /hpf Ur Squamous Epith Cells 8 H (0-4) /hpf Urine Bacteria Occasional H (None) /hpf Hyaline Casts 34 H (0-2) /lpf Urine Mucus Moderate H (None) /hpf Urine Yeast (Budding) Moderate H (None) /hpf Microbiology - Last 24 Hours (Table) 06/12/20 20:13 Urine Culture - Preliminary Urine,Clean Catch H & H 06/12/20 Range/Units 19:14 Hgb 12.6 (11.4-16.0) gm/dL Hct 39.1 (34.0-46.0) % Coagulation 06/12/20 Range/Units 19:14 INR 1.0 (<1.2) Result Diagrams: 06/12/20 19:14 06/12/20 19:14 Assessment and Plan (1) Renal stone Current Visit: Yes Status: Acute Code(s): N20.0 - CALCULUS OF KIDNEY SNOMED Code(s): 75636366 (2) Urinary tract infection Current Visit: Yes Status: Acute Code(s): N39.0 - URINARY TRACT INFECTION, SITE NOT SPECIFIED SNOMED Code(s): 40052160 Plan: 1. On exam patient's pain has improved after passing a kidney stone today. 2. Patient may follow up on an outpatient basis as needed.
[2020-06-13] MEDS: SODIUM CHLORIDE 0.9% 1,000 ML IV SCH ×2 (11:30→20:44)
[2020-06-13 13:18] LABS: Ferritin 32.1 ng/mL (10.0-291.0)
--- NOTE | 2020-06-14 00:32 | P.HPIM ---
History of Present Illness H&P Date: 06/13/20 Chief Complaint: Fever or chills History of presenting complaint: This is a pleasant 75-year-old patient of Dr. Soren Stringer. Chronic stable medical conditions include asthma, diabetes, hypertension, hyperlipidemia, ostial arthritis, hypothyroid. Yesterday she gone shopping and was walking back to her car suddenly she felt the hands to be locking up. She became chilly sta rted freezing. Developed a fever. Also having some suprapubic pressure. Also is having some right flank pain. This morning patient did pass a stone in in the urine that was actively collected in the [facility] Review of systems: GEN.: Fever and chills EYES: None HEENT: None NECK: None RESPIRATORY: None CARDIOVASCULAR: None GASTROINTESTINAL: None GENITOURINARY: Suprapubic pressure MUSCULOSKELETAL: None LYMPHATICS: None HEMATOLOGICAL: None PSYCHIATRY: None NEUROLOGICAL: None Past medical history to include: Asthma, diabetes, hypertension, hyperlipidemia, osteoarthritis, hypothyroid, kidney stones, bilateral cataracts, bariatric surgery Social history: Lives with her sister. No smoking. Alcohol rarely. Physical examination: VITAL SIGNS: 100.8, 93, 18, 125/72, 99% room air GENERAL: BMI 27, laying in bed, awake a bit tired. EYES: Pupils equal. Conjunctiva normal. HEENT: External appearance of nose and ears normal, oral cavity grossly normal. NECK: JVD not raised; masses not palpable. HEART: First and second heart sounds are normal; no edema. LUNGS: Respiratory rate normal; clear to auscultation. ABDOMEN: Soft, mild suprapubic tenderness, liver spleen not palpable, no masses palpable. PSYCH: Alert and oriented x3; mood and affect normal. NEUROLOGICAL: Cranial nerves grossly intact; no facial asymmetry, power and sensation grossly intact. LYMPHATICS: No lymph nodes palpable in the axilla and neck INVESTIGATIONS, reviewed in the clinical context: WBC 15.8 hemoglobin 12.6 platelets 384 potassium 4.1 bun 26 creatinine 1.60 UA positive for leukoesterase, WBC EKG tracing personally reviewed by me-normal sinus rhythm Chest x-ray film personally reviewed by me-lung resendiz clear Assessment and plan: -Acute UTI with cystitis with possibly mild pyelonephritis associated with kidney stones. Patient started IV fluids, IV ceftriaxone -Diabetes mellitus type 2 continue with Glucophage. Follow Accu-Cheks -Hyperlipidemia, continue with Lipitor -Essential hypertension, continue with lisinopril -Primary osteoarthritis, use Tylenol when necessary -Hypothyroid, continue with Synthroid -Kidney stones-patient passed a kidney stone this morning. Will be sent out for chemical analysis. Patient IV ceftriaxone IV fluids. Repeat labs in the morning. Subcu Lovenox f or DVT prophylaxis. Care was discussed with the patient. Past Medical History Past Medical History: Asthma, Diabetes Mellitus, Eye Disorder, Hyperlipidemia, Hypertension, Osteoarthritis (OA), Thyroid Disorder Additional Past Medical History / Comment(s): PAST HX OF ASTHMA. HX KIDNEY STONES. HX TB W/ TREATMENT. GENE CATARACTS. History of Any Multi-Drug Resistant Organisms: None Reported Past Surgical History: Bariatric Surgery, Hysterectomy, Joint Replacement Additional Past Surgical History / Comment(s): GENE TOTAL KNEE, GASTROPLASTY, BREAST REDUCTION. Past Anesthesia/Blood Transfusion Reactions: No Reported Reaction Past Psychological History: Anxiety, Depression Smoking Status: Never smoker Past Alcohol Use History: Rare Past Drug Use History: None Reported - Past Family History Father Family Medical History: Cancer Additional Family Medical History / Comment(s): parkinsons Mother Family Medical History: Deep Vein Thrombosis (DVT) Additional Family Medical History / Comment(s): POSSIBLE DVT, UNSURE Medications and Allergies Home Medications Medication Instructions Recorded Confirmed Type amLODIPine [Norvasc] 5 mg PO DAILY 07/18/14 06/12/20 History lisinopriL 40 mg PO DAILY 07/18/14 06/12/20 History Cholecalciferol [Vitamin D3 (25 50 mcg PO DAILY 10/09/18 06/12/20 History Mcg = 1000 Iu)] Folic Acid 0.4 mg PO DAILY 10/09/18 06/12/20 History Multivit-Min/FA/Lycopen/Lutein 1 each PO DAILY 10/09/18 06/12/20 History [Centrum Silver Tablet] Atorvastatin [Lipitor] 80 mg PO DAILY 06/12/20 06/12/20 History Ibuprofen [Motrin Ib] 200 mg PO BID 06/12/20 06/12/20 History Vit C/E/Zn/Coppr/Lutein/Zeaxan 1 tab PO DAILY 06/12/20 06/12/20 History [Preservision Areds 2 Softgel] metFORMIN HCL [Glucophage] 500 mg PO BID 06/12/20 06/12/20 History Allergies Allergy/AdvReac Type Severity Reaction Status Date / Time No Known Allergies Allergy Verified 06/12/20 19:44 Physical Exam Vitals: Vital Signs Temp Pulse Pulse Resp BP BP Pulse Ox 06/13/20 08:40 108/60 06/13/20 08:11 98.4 F 77 16 100/62 97 06/13/20 08:10 98.4 F 77 16 100/62 97 06/13/20 08:00 98.5 F 63 16 105/56 98 06/12/20 23:46 98.1 F 76 18 108/62 100 06/12/20 23:09 99.2 F 76 18 106/56 99 06/12/20 18:34 100.8 F H 93 18 125/72 99 Intake and Output 06/12/20 06/13/20 06/13/20 22:59 06:59 14:59 Intake Total 1340 Output Total 170 175 Balance 1170 -175 Intake: Intake, IV Titration 800 Amount Magnesium Sulfate-D5w Pmx 200 1 gm In Dextrose/Water 1 100ml.bag @ 100 mls/hr IVPB Q1H QUIRINO Rx#: [id number] Sodium Chloride 0.9% 1, 600 000 ml @ 100 mls/hr IV . Q10H STA Rx#:[id number] Oral 540 Output: Urine 100 175 Emesis 70 Other: Voiding Method Toilet Toilet # Voids 1 Weight 77.383 kg 78.2 kg Results CBC & Chem 7: 06/12/20 19:14 06/12/20 19:14 Labs: Abnormal Lab Results - Last 24 Hours (Table) 06/12/20 06/12/20 06/12/20 Range/Units 19:14 19:14 20:13 WBC 15.8 H (3.8-10.6) k/uL Neutrophils # 15.2 H (1.3-7.7) k/uL Lymphocytes # 0.2 L (1.0-4.8) k/uL BUN 26 H (7-17) mg/dL Creatinine 1.60 H (0.52-1.04) mg/dL Glucose 130 H (74-99) mg/dL Magnesium 1.5 L (1.6-2.3) mg/dL C-Reactive Protein 16.3 H (<10.0) mg/L Urine Appearance Turbid H (Clear) Urine Protein 2+ H (Negative) Urine Blood Large H (Negative) Ur Leukocyte Esterase Large H (Negative) Urine RBC >182 H (0-5) /hpf Urine WBC >182 H (0-5) /hpf Urine WBC Clumps Many H (None) /hpf Ur Squamous Epith Cells 8 H (0-4) /hpf Urine Bacteria Occasional H (None) /hpf Hyaline Casts 34 H (0-2) /lpf Urine Mucus Moderate H (None) /hpf Urine Yeast (Budding) Moderate H (None) /hpf Microbiology - Last 24 Hours (Table) 06/12/20 20:13 Urine Culture - Preliminary Urine,Clean Catch Thrombosis Risk Factor Assmnt - Choose All That Apply Any of the Below Risk Factors Present?: Yes Each Factor Represents 1 point: Obesity (BMI >25) Other Risk Factors: Yes Each Risk Factor Represents 3 Points: Age 75 years or older Other congenital or acquired thrombophilia - If yes, enter type in comment: No Thrombosis Risk Factor Assessment Total Risk Factor Score: 4 Thrombosis Risk Factor Assessment Level: Moderate Risk
[2020-06-14] MEDS: ACETAMINOPHEN TAB 325 MG TAB PO PRN (05:02)
[2020-06-14] MEDS: BACLOFEN 10 MG TAB PO PRN ×2 (05:02→23:32)
[2020-06-14] MEDS: MAGNESIUM SULFATE-D5W PMX 1 GM in DEXTROSE/WATER 1 100ML.BAG IVPB SCH ×2 (05:16→06:25)
[2020-06-14 05:56] LABS: Glucose,Whole Blood 95 mg/dL (75-99)
[2020-06-14] MEDS: PANTOPRAZOLE 40 MG TABLET PO SCH (06:25)
[2020-06-14 08:52] LABS: Basophils % (A) 0 %; Eosinophils # (A) 0.1 k/uL (0-0.7); Eosinophils % (A) 1 %; HCT 33.3 % (34.0-46.0); HGB 11.2 gm/dL (11.4-16.0); Lymphocytes # (A) 0.5 k/uL (1.0-4.8); Lymphocytes % (A) 5 %; MCH 30.2 pg (25.0-35.0); MCHC 33.5 g/dL (31.0-37.0); MCV 90.1 fL (80.0-100.0); Mean Platelet Volume 8.3; Monocytes # (A) 0.3 k/uL (0-1.0); Monocytes % (A) 3 %; Neutrophils # (A) 8.6 k/uL (1.3-7.7); Neutrophils % (A) 90 %; Platelet Count 233 k/uL (150-450); RBC 3.69 m/uL (3.80-5.40); RDW 13.7 % (11.5-15.5); WBC 9.5 k/uL (3.8-10.6)
[2020-06-14] MEDS ORDERED: DILTIAZEM ORAL 30 MG TAB PO SCH (09:00)
[2020-06-14 09:04] LABS: Calcium 8.1 mg/dL (8.4-10.2); Potassium 4.5 mmol/L (3.5-5.1)
[2020-06-14] MEDS: APIXABAN 5 MG TAB PO SCH ×2 (09:34→20:35)
[2020-06-14] MEDS: CHOLECALCIFEROL 25 MCG (1000 IU) TABLET PO SCH (09:35)
[2020-06-14] MEDS: ATORVASTATIN 80 MG TAB PO SCH (09:35)
[2020-06-14] MEDS: METOPROLOL TARTRATE 25 MG TAB PO SCH ×2 (09:36→20:35)
[2020-06-14] MEDS: metFORMIN 500 MG TAB PO SCH ×2 (09:36→20:36)
[2020-06-14] MEDS: VIT A,C & E-LUTEIN-MINERALS 1 EACH TAB PO SCH (09:37)
[2020-06-14] MEDS: MULTIVITAMINS, THERA 1 EACH TAB PO SCH (09:37)
[2020-06-14 10:49] LABS: Glucose,Whole Blood 107 mg/dL (75-99)
--- NOTE | 2020-06-14 11:01 | ECHOF ---
Referral Reason:new onset afib MEASUREMENTS -------- HEIGHT: 170.2 cm WEIGHT: 79.8 kg BP: 100/61 RVIDd: 2.5 cm (< 3.3) IVSd: 1.1 cm (0.6 - 1.1) LVIDd: 3.3 cm (3.9 - 5.3) LVPWd: 1.2 cm (0.6 - 1.1) IVSs: 1.6 cm LVIDs: 2.0 cm LVPWs: 1.9 cm Ao Diam: 2.5 cm (2.0 - 3.7) AV Cusp: 1.8 cm (1.5 - 2.6) LA Diam: 3.7 cm (2.7 - 3.8) RAP: 5.00 mmHg RVSP: 12.42 mmHg FINDINGS -------- Atrial fibrillation. This was a technically adequate study. The left ventricular size is normal. There is mild concentric left ventricular hypertrophy. Overa ll left ventricular systolic function is normal with, an EF between 55 - 60 %. Left ventricular stella limg pressure cannot be estimated due to Atrial fibrillation. The right ventricle is normal in size. , and the LA measures 3.7cm. The right atrial size is normal. The aortic valve is trileaflet and appears structurally normal. The mitral valve is normal. There is trace mitral regurgitation. The tricuspid valve appears structurally normal. Trace tricuspid regurgitation present. Right iraida tricular systolic pressure is normal at < 35 mmHg. There is no pulmonic regurgitation present. The aortic root size is normal. Normal inferior vena cava with normal inspiratory collapse consistent with estimated right atrial pre ssure of 5 mmHg. There is no pericardial effusion. CONCLUSIONS -------- 1. The left ventricular size is normal. 2. There is mild concentric left ventricular hypertrophy. 3. Overall left ventricular systolic function is normal with, an EF between 55 - 60 %. 4. Left ventricular fillimg pressure cannot be estimated due to Atrial fibrillation. 5. There is trace mitral regurgitation. 6. Trace tricuspid regurgitation present. 7. There is no pericardial effusion. PROFESSOR OF ENGINEERING: Melissa Paulino, [facility]
--- NOTE | 2020-06-14 11:33 | CT ---
EXAMINATION TYPE: CT brain wo con for TPA DATE OF EXAM: 06/14/2020 COMPARISON: 07/14/2018 INDICATION: Neuro deficit, acute, stroke suspected DLP: 1099.4 mGycm, Automated exposure control for dose reduction was used. CONTRAST: None CT of the brain is performed utilizing 3 mm thick sections through the posterior fossa and 3 mm thick sections through the remaining calvarium. Study is performed within 24 hours of arrival to the hosp [facility]. No abnormal hyperdensity is present to suggest an acute intracranial hemorrhage. No mass lesion is evident. No acute infarcts are evident. Patchy periventricular white matter hypodensity is present, likely on the basis of chronic white matter ischemic change. Ventricles and sulci are appropriate for the patient age. Some age related prominence is present. Paranasal sinuses and mastoid air cells within the [id number] are clear. IMPRESSIONS: 1. No definite acute intracranial process. 2. Chronic appearing periventricular white matter ischemic changes with mild age-related atrophy.
[2020-06-14 11:40] LABS: Glucose,Whole Blood 90 mg/dL (75-99)
[2020-06-14 12:13] LABS: Basophils % (A) 0 %; Eosinophils # (A) 0.2 k/uL (0-0.7); Eosinophils % (A) 2 %; HCT 34.5 % (34.0-46.0); HGB 11.7 gm/dL (11.4-16.0); Lymphocytes # (A) 0.5 k/uL (1.0-4.8); Lymphocytes % (A) 4 %; MCH 30.8 pg (25.0-35.0); MCHC 33.9 g/dL (31.0-37.0); MCV 90.8 fL (80.0-100.0); Mean Platelet Volume 8.3; Monocytes # (A) 0.3 k/uL (0-1.0); Monocytes % (A) 3 %; Neutrophils % (A) 89 %; Platelet Count 258 k/uL (150-450); RDW 13.8 % (11.5-15.5); WBC 10.1 k/uL (3.8-10.6)
--- NOTE | 2020-06-14 12:17 | P.CRDCN ---
History of Present Illness History of present illness: HISTORY OF PRESENTING ILLNESS This is a pleasant 75-year-old female past medical history significant for hypertension, diabetes mellitus and asthma. She denies prior history of co ronary artery disease and does not follow in the office with a clinical data management director. We have been asked to see in consultation for new onset atrial fibrillation. Presented to the hospital with symptoms of hand cramping and back spasm. She was found to have a urinary tract infection along with kidney stones that she passed while in the hospital. Last night she went into atrial fibrillation with mildly rapid ventricular rates. This morning around 10:00 she converted back to sinus mechanism. She denies feeling any symptoms of chest discomfort, shortness of breath, dizziness or palpitations. Initial EKG on arrival revealed sinus mechanism with PACs. Chest x-ray is negative for an acute cardiopulmonary process. Laboratory data reviewed, WBC 9.5, hemoglobin 11.2, platelets 233, sodium 137, potassium 4.5, creatinine 1.56, TSH 1.16, pro-calcitonin 31, magnesium on admission 1.5 REVIEW OF SYSTEMS At the time of my exam: CONSTITUTIONAL: Denies fever or chills. CARDIOVASCULAR: Denies chest pain, shortness of breath, orthopnea, PND or palpitations. RESPIRATORY: Denies cough. GASTROINTESTINAL: Denies abdominal pain, diarrhea, constipation, nausea or vomiting. MUSCULOSKELETAL: Denies myalgias. NEUROLOGIC: Denies numbness, tingling, headacbe or weakness. ENDOCRINE: Denies fatigue, weight change, polydipsia or polyurina. GENITOURINARY: Denies burning, hematuria or urgency with micturation. HEMATOLOGIC: Denies history of anemia or bleeding. PHYSICAL EXAMINATION Blood pressure 113/57 heart rate 69 afebrile and maintaining oxygen saturation on room air. CONSTITUTIONAL: No apparent distress. HEENT: Head is normocephalic. Pupils are equal, round. Sclerae anicteric. Mucous membranes of the mouth are moist. No JVD. No carotid bruit. CHEST EXAMINATION: Lungs are clear to auscultation. No chest wall tenderness is noted on palpation or with deep breathing. HEART EXAMINATION: Regular rate and rhythm. S1, S2 heard. No murmurs, gallops or rub. ABDOMEN: Soft, nontender. Positive bowel sounds. EXTREMITIES: 2+ peripheral pulses, no lower extremity edema and no calf tenderness. NEUROLOGIC EXAMINATION: Patient is awake, alert and oriented x3. ASSESSMENT Leuckocytosis Hypomagnesemia New onset paroxysmal atrial fibrillation, currently has converted to SR Acute kidney injury Urinary tract infection Hypertension Dyslipidemia Diabetes mellitus PLAN Recommend eliquis 5 mg BID for thromboembolic protection. Initiate lopressor 25 mg BID for rate control. Discontinue amlodipine and decrease lisinopril to 10 mg daily. Obtain 2D echocardiogram and doppler study to assess cardiac structure and function. Ongoing telemetry monitoring. Further recommendations to follow based on clinical course. Thank you kindly for this consultation. Nurse Practitioner note has been reviewed, I agree with a documented findings and plan of care. Patient was seen and examined. Past Medical History Past Medical History: Asthma, Diabetes Mellitus, Eye Disorder, Hyperlipidemia, Hypertension, Osteoarthritis (OA), Thyroid Disorder Additional Past Medical History / Comment(s): PAST HX OF ASTHMA. HX KIDNEY STONES. HX TB W/ TREATMENT. GENE CATARACTS. History of Any Multi-Drug Resistant Organisms: None Reported Past Surgical History: Bariatric Surgery, Hysterectomy, Joint Replacement Additional Past Surgical History / Comment(s): GENE TOTAL KNEE, GASTROPLASTY, BREAST REDUCTION. Past Anesthesia/Blood Transfusion Reactions: No Reported Reaction Past Psychological History: Anxiety, Depression Smoking Status: Never smoker Past Alcohol Use History: Rare Past Drug Use History: None Reported - Past Family History Father Family Medical History: Cancer Additional Family Medical History / Comment(s): parkinsons Mother Family Medical History: Deep Vein Thrombosis (DVT) Additional Family Medical History / Comment(s): POSSIBLE DVT, UNSURE Medications and Allergies Home Medications Medication Instructions Recorded Confirmed Type amLODIPine [Norvasc] 5 mg PO DAILY 07/18/14 06/12/20 History lisinopriL 40 mg PO DAILY 07/18/14 06/12/20 History Cholecalciferol [Vitamin D3 (25 50 mcg PO DAILY 10/09/18 06/12/20 History Mcg = 1000 Iu)] Folic Acid 0.4 mg PO DAILY 10/09/18 06/12/20 History Multivit-Min/FA/Lycopen/Lutein 1 each PO DAILY 10/09/18 06/12/20 History [Centrum Silver Tablet] Atorvastatin [Lipitor] 80 mg PO DAILY 06/12/20 06/12/20 History Ibuprofen [Motrin Ib] 200 mg PO BID 06/12/20 06/12/20 History Vit C/E/Zn/Coppr/Lutein/Zeaxan 1 tab PO DAILY 06/12/20 06/12/20 History [Preservision Areds 2 Softgel] metFORMIN HCL [Glucophage] 500 mg PO BID 06/12/20 06/12/20 History Allergies Allergy/AdvReac Type Severity Reaction Status Date / Time No Known Allergies Allergy Verified 06/12/20 19:44 Physical Exam Vitals: Vital Signs Temp Pulse Resp BP BP Pulse Ox 06/14/20 11:43 98.6 F 06/14/20 11:25 69 16 113/57 95 06/14/20 08:19 97.5 F L 86 16 104/68 96 06/14/20 04:00 97.6 F 74 18 100/61 94 L 06/14/20 00:00 98.4 F 102 H 19 154/77 90 L 06/13/20 20:50 98.1 F 18 93/58 95 06/13/20 18:00 97 F L 78 18 123/67 97 06/13/20 13:59 98.3 F 74 18 95/50 98 Intake and Output 06/13/20 06/14/20 06/14/20 22:59 06:59 14:59 Intake Total 640 740 Output Total 625 600 Balance -625 40 740 Intake: Intake, IV Titration 400 Amount Magnesium Sulfate-D5w Pmx 100 1 gm In Dextrose/Water 1 100ml.bag @ 100 mls/hr IVPB Q1H QUIRINO Rx#: [id number] Sodium Chloride 0.9% 1, 300 000 ml @ 100 mls/hr IV . Q10H QUIRINO Rx#:[id number] Oral 240 740 Output: Urine 625 600 Other: # Voids 1 2 1 Weight 79.9 kg Results 06/14/20 07:31 06/14/20 07:31 CBC 06/14/20 Range/Units 07:31 WBC 9.5 (3.8-10.6) k/uL RBC 3.69 L (3.80-5.40) m/uL Hgb 11.2 L (11.4-16.0) gm/dL Hct 33.3 L (34.0-46.0) % Plt Count 233 (150-450) k/uL Comprehensive Metabolic Panel 06/14/20 Range/Units 07:31 Sodium 137 (137-145) mmol/L Potassium 4.5 (3.5-5.1) mmol/L Chloride 108 H (98-107) mmol/L Carbon Dioxide 23 (22-30) mmol/L BUN 33 H (7-17) mg/dL Creatinine 1.56 H (0.52-1.04) mg/dL Glucose 99 (74-99) mg/dL Calcium 8.1 L (8.4-10.2) mg/dL Current Medications Generic Name Dose Route Start Last Admin Trade Name Freq PRN Reason Stop Dose Admin Acetaminophen 650 mg 06/12/20 22:48 06/14/20 05:02 Acetaminophen Tab 325 Mg Tab PO 650 mg Q6HR PRN Administration Mild Pain or Fever > 100.5 Apixaban 5 mg 06/14/20 09:00 06/14/20 09:34 Apixaban 5 Mg Tab PO 5 mg BID QUIRINO Administration Atorvastatin Calcium 80 mg 06/13/20 09:00 06/14/20 09:35 Atorvastatin 80 Mg Tab PO 80 mg DAILY QUIRINO Administration Baclofen 5 mg 06/13/20 01:07 06/14/20 05:02 Baclofen 10 Mg Tab PO 5 mg QID PRN Administration Muscle Spasm Cholecalciferol 50 mcg 06/13/20 09:00 06/14/20 09:35 Cholecalciferol 25 Mcg (1000 Iu) Tablet PO 50 mcg DAILY QUIRINO Administration Ceftriaxone Sodium 1 gm/ 50 mls @ 100 mls/hr 06/13/20 21:00 06/13/20 20:43 Sodium Chloride IVPB 100 mls/hr Q24H QUIRINO Administration Sodium Chloride 1,000 mls @ 100 mls/hr 06/13/20 11:15 06/13/20 20:44 Saline 0.9% IV 100 mls/hr .Q10H QUIRINO Administration Lisinopril 10 mg 06/15/20 09:00 Lisinopril 10 Mg Tab PO DAILY QIURINO Metformin HCl 500 mg 06/13/20 09:00 06/14/20 09:36 Metformin 500 Mg Tab PO 500 mg BID QUIRINO Administration Metoprolol Tartrate 25 mg 06/14/20 09:00 06/14/20 09:36 Metoprolol Tartrate 25 Mg Tab PO 25 mg BID QUIRINO Administration Miscellaneous Information 1 each 06/13/20 01:25 Magnesium Replacement Protocol 1 Each Misc MISCELLANE DAILY PRN Per Protocol Protocol Morphine Sulfate 1 mg 06/14/20 00:10 Morphine Sulfate 2 Mg/Ml Syringe IVP Q3H PRN Pain/Discomfort Multivitamins 1 each 06/13/20 09:00 06/14/20 09:37 Multivitamins, Thera 1 Each Tab PO 1 each DAILY QUIRINO Administration Multivitamins/Minerals 1 each 06/13/20 09:00 06/14/20 09:37 Vit A,C & C-Vwxrhg-Sepnlsxo 1 Each Tab PO 1 each DAILY QUIRINO Administration Ondansetron HCl 4 mg 06/12/20 22:48 06/13/20 22:04 Ondansetron 4 Mg/2 Ml Vial IVP 4 mg Q8HR PRN Administration Nausea And Vomiting Pantoprazole Sodium 40 mg 06/13/20 07:30 06/14/20 06:25 Pantoprazole 40 Mg Tablet PO 40 mg [id number] QUIRINO Administration Intake and Output 06/13/20 06/14/20 06/14/20 22:59 06:59 14:59 Intake Total 640 740 Output Total 625 600 Balance -625 40 740 Intake: Intake, IV Titration 400 Amount Magnesium Sulfate-D5w Pmx 100 1 gm In Dextrose/Water 1 100ml.bag @ 100 mls/hr IVPB Q1H QUIRINO Rx#: [id number] Sodium Chloride 0.9% 1, 300 000 ml @ 100 mls/hr IV . Q10H QUIRINO Rx#:[id number] Oral 240 740 Output: Urine 625 600 Other: # Voids 1 2 1 Weight 79.9 kg 06/14/20 07:31 06/14/20 07:31
[2020-06-14 12:35] LABS: Prothrombin Time 10.4 sec (9.0-12.0)
[2020-06-14 12:38] LABS: Albumin 2.9 g/dL (3.5-5.0); Calcium 8.3 mg/dL (8.4-10.2); Magnesium 2.8 mg/dL (1.6-2.3); Potassium 4.4 mmol/L (3.5-5.1); Total Bilirubin 0.4 mg/dL (0.2-1.3); Total Protein 5.3 g/dL (6.3-8.2)
[2020-06-14] MEDS: SODIUM CHLORIDE 0.9% 1,000 ML IV SCH ×2 (12:38→17:14)
--- NOTE | 2020-06-14 13:55 | P.CNNES ---
History of Present Illness Consult date: 06/14/20 Requesting physician: Tuan Hankins Reason for Consult: Code Stroke History of Present Illness: Patient is a 75-year-old female who came to the hospital at 6:33 PM on 06/12/2020 for fever, back pain vomiting. Patient states that earlier that day she went with her brother to the [facility]. The car was parked in the [facility], and her brother went inside the store for shopping. As soon as he left, patient developed a cramp in her hands and feet and severe back pain. Patient somehow managed to call her daughter, and her brother came back from [employer], and patient was brought to the hospital. Patient subsequently has past a kidney stone which likely was the cause of back pain. Patient states that she has not been sleeping well for the last 2 nights. She is usually a light sleeper, but since being in the hospital, she is very tired and wants to sleep all the time. She also has developed new onset atrial fibrillation, and has been started on Eliquis. Patient states that she woke up this morning and was slightly confused, disoriented, did not know her age or date of . Stroke code was activated. A shunt was sent for computed tomography scan of the head. When she came back, she was fairly well oriented. Patient was not considered a candidate for TPA. CT head showed no definite acute intracranial process. Chronic appearing periventricular white matter ischemic changes with mild age-related atrophy. Chest x-ray normal. EKG shows sinus rhythm with premature atrial complexes. At present patient has no symptoms. Denies any focal symptoms. No headache. Patient's blood tests shows normal white cells, hemoglobin 11.2 platelets are normal. PT/PTT normal. Renal functions are slightly off with BUN 31, creatinine 1.44. Hepatic panel normal, UA shows large amount of leukocyte Estrace, > 182 WBCs and many clams. Occasional bacteria. Urine cultures have grown gram-negative bacilli 50,000-100,000 range. Patient is currently on Rocephin. Patient had a 2-D echo, which revealed normal left-ventricular size. Mild concentric LVH. EF is 55-60%. Review of Systems Complains of tiredness. Patient gets fever on arrival on 100.8. Now it is normal. Back pain has improved. Denies any numbness tingling focal weakness. Denies any double vision, loss of vision, hoarseness, sore throat, dysphagia. Denies any chest pain, abdominal pain. All other review of systems unremarkable. Past Medical History Past Medical History: Asthma, Diabetes Mellitus, Eye Disorder, Hyperlipidemia, Hypertension, Osteoarthritis (OA), Thyroid Disorder Additional Past Medical History / Comment(s): PAST HX OF ASTHMA. HX KIDNEY STONES. HX TB W/ TREATMENT. GENE CATARACTS. History of Any Multi-Drug Resistant Organisms: None Reported Past Surgical History: Bariatric Surgery, Hysterectomy, Joint Replacement Additional Past Surgical History / Comment(s): GENE TOTAL KNEE, GASTROPLASTY, BREAST REDUCTION. Past Anesthesia/Blood Transfusion Reactions: No Reported Reaction Past Psychological History: Anxiety, Depression Smoking Status: Never smoker Past Alcohol Use History: Rare Past Drug Use History: None Reported - Past Family History Father Family Medical History: Cancer Additional Family Medical History / Comment(s): parkinsons Mother Family Medical History: Deep Vein Thrombosis (DVT) Additional Family Medical History / Comment(s): POSSIBLE DVT, UNSURE Medications and Allergies Home Medications Medication Instructions Recorded Confirmed Type Cholecalciferol [Vitamin D3 (25 50 mcg PO DAILY 10/09/18 06/12/20 History Mcg = 1000 Iu)] Folic Acid 0.4 mg PO DAILY 10/09/18 06/12/20 History Multivit-Min/FA/Lycopen/Lutein 1 each PO DAILY 10/09/18 06/12/20 History [Centrum Silver Tablet] Atorvastatin [Lipitor] 80 mg PO DAILY 06/12/20 06/12/20 History Vit C/E/Zn/Coppr/Lutein/Zeaxan 1 tab PO DAILY 06/12/20 06/12/20 History [Preservision Areds 2 Softgel] metFORMIN HCL [Glucophage] 500 mg PO BID 06/12/20 06/12/20 History Apixaban [Eliquis] 5 mg PO BID #60 tab 06/14/20 Rx Cefuroxime Axetil [Ceftin] 500 mg PO BID #14 tab 06/14/20 Rx Metoprolol Tartrate [Lopressor] 25 mg PO BID #60 tab 06/14/20 Rx lisinopriL [Zestril] 10 mg PO DAILY #30 tab 06/14/20 Rx Allergies Allergy/AdvReac Type Severity Reaction Status Date / Time No Known Allergies Allergy Verified 06/12/20 19:44 Physical Examination - Vital Signs Vital Signs: Vital Signs Temp Pulse Resp BP BP Pulse Ox 06/14/20 11:43 98.6 F 06/14/20 11:25 69 16 113/57 95 06/14/20 08:19 97.5 F L 86 16 104/68 96 06/14/20 04:00 97.6 F 74 18 100/61 94 L 06/14/20 00:00 98.4 F 102 H 19 154/77 90 L 06/13/20 20:50 98.1 F 18 93/58 95 06/13/20 18:00 97 F L 78 18 123/67 97 06/13/20 13:59 98.3 F 74 18 95/50 98 Intake and Output 06/13/20 06/14/20 06/14/20 22:59 06:59 14:59 Intake Total 640 740 Output Total 625 600 Balance -625 40 740 Intake: Intake, IV Titration 400 Amount Magnesium Sulfate-D5w Pmx 100 1 gm In Dextrose/Water 1 100ml.bag @ 100 mls/hr IVPB Q1H QUIRINO Rx#: [id number] Sodium Chloride 0.9% 1, 300 000 ml @ 100 mls/hr IV . Q10H QUIRINO Rx#:[id number] Oral 240 740 Output: Urine 625 600 Other: # Voids 1 2 1 Weight 79.9 kg On examination patient is an elderly female, in no acute distress. Patient is alert, awake oriented to time place and person. Speech and language functions are normal. Attention, concentration and fund of knowledge is adequate. On cranial nerve examination pupils are round and reactive to light, visual resendiz are full to confrontation, extraocular muscles are intact with no nystagmus. Face is symmetric, tongue protrudes to the midline. Palatal elevation and sensation normal, hearing and shoulder shrug normal, facial sensation normal. On muscle strength testing there is no pronator drift and the strength is normal in arms and legs reflexes are 1+ to 2 and plantars downgoing. Sensory to touch is equal. No ataxia for [id number] testing, tone and bulk of muscles normal. There is no obvious bruit, S1-S2 audible, abdomen soft nontender. Peripheral pulses present. Results - Laboratory Findings CBC and BMP: 06/15/20 09:50 06/15/20 09:50 Abnormal Lab Findings: Abnormal Labs 06/12/20 06/12/20 06/12/20 19:14 19:14 19:14 WBC 15.8 H RBC Hgb Hct Neutrophils # 15.2 H Lymphocytes # 0.2 L Sodium Chloride BUN 26 H Creatinine 1.60 H Glucose 130 H POC Glucose (mg/dL) Calcium Magnesium 1.5 L C-Reactive Protein 16.3 H Total Protein Albumin Procalcitonin 31.61 H Urine Appearance Urine Protein Urine Blood Ur Leukocyte Esterase Urine RBC Urine WBC Urine WBC Clumps Ur Squamous Epith Cells Urine Bacteria Hyaline Casts Urine Mucus Urine Yeast (Budding) 06/12/20 06/14/20 06/14/20 20:13 07:31 07:31 WBC RBC 3.69 L Hgb 11.2 L Hct 33.3 L Neutrophils # 8.6 H Lymphocytes # 0.5 L Sodium Chloride 108 H BUN 33 H Creatinine 1.56 H Glucose POC Glucose (mg/dL) Calcium 8.1 L Magnesium C-Reactive Protein Total Protein Albumin Procalcitonin Urine Appearance Turbid H Urine Protein 2+ H Urine Blood Large H Ur Leukocyte Esterase Large H Urine RBC >182 H Urine WBC >182 H Urine WBC Clumps Many H Ur Squamous Epith Cells 8 H Urine Bacteria Occasional H Hyaline Casts 34 H Urine Mucus Moderate H Urine Yeast (Budding) Moderate H 06/14/20 06/14/20 06/14/20 10:46 11:26 11:26 WBC RBC Hgb Hct Neutrophils # 9.0 H Lymphocytes # 0.5 L Sodium 135 L Chloride BUN 31 H Creatinine 1.44 H Glucose 101 H POC Glucose (mg/dL) 107 H Calcium 8.3 L Magnesium 2.8 H C-Reactive Protein Total Protein 5.3 L Albumin 2.9 L Procalcitonin Urine Appearance Urine Protein Urine Blood Ur Leukocyte Esterase Urine RBC Urine WBC Urine WBC Clumps Ur Squamous Epith Cells Urine Bacteria Hyaline Casts Urine Mucus Urine Yeast (Budding) Assessment and Plan Assessment: * Transient disorientation, possibly delirium, possible from mild encephalopathy from acute UTI. There were no other associated focal symptoms. Therefore TIA appears unlikely. * Acute UTI * New onset atrial fibrillation. * Status post passing renal stone. * Mild renal insufficiency Plan: * Await carotid Doppler. * Continue eliquis. * We will follow.
--- NOTE | 2020-06-14 15:03 | US ---
EXAMINATION TYPE: US carotid duplex BILAT DATE OF EXAM: 06/14/2020 COMPARISON: NONE CLINICAL HISTORY: TIA. EXAM MEASUREMENTS: RIGHT: Peak Systolic Velocity (PSV) cm/sec ----- Right CCA: 73.0 ----- Right ICA: 74.1 ----- Right ECA: 91.4 ICA/CCA ratio: 1.0 RIGHT: End Diastole cm/sec ----- Right CCA: 22.1 ----- Right ICA: 28.6 ----- Right ECA: 5.5 LEFT: Peak Systolic Velocity (PSV) cm/sec ----- Left CCA: 62.1 ----- Left ICA: 72.2 ----- Left ECA: 72.2 ICA/CCA ratio: 1.2 LEFT: End Diastole cm/sec ----- Left CCA: 14.8 ----- Left ICA: 21.8 ----- Left ECA: 6.7 VERTEBRALS (direction of flow): Right Vertebral: Antegrade Left Vertebral: Antegrade Rhythm: Normal No elevated velocities, minimal plaque. IMPRESSION: 1. Minimal atheromatous plaquing without significant flow-limiting stenosis. Criteria for Assigning % of Stenosis / Diameter reduction (Estimation based on the indirect measurements of the internal carotid artery velocities (ICA PSV). 1. Normal (no stenosis)=ICA PSV < 125 cm/s: ratio < 2.0: ICA EDV<40 cm/s. 2. Less than 50% stenosis=ICA PSV < 125 cm/s: ratio < 2.0: ICA EDV<40 cm/s. 3. 50 to 69% stenosis=ICA PSV of 125 to 230 cm/s: ration 2.0 ? 4.0: ICA EDV 40-100 cm/s. 4. Greater than 70% stenosis to near occlusion= ICA PSV > 230 cm/s: ratio > 4.0: ICA EDV > 100 cm/s. 5. Near occlusion= ICA PSV velocities may be low or undetectable: variable ratio and ICA EDV. 6. Total occlusion=unable to detect flow.
--- NOTE | 2020-06-14 16:27 | P.GSCN ---
History of Present Illness Consult date: 06/14/20 Reason for Consult: Kidney stones History of present illness: 75-year-old female admitted to the hospital with weakness and a UTI. She is also been complaining of bilateral flank pain, worse on the right. She indicated that she has passed stone. She indicated after passing this on her pain has initially subsidize, limited evaluation she indicated she's having recurrence but less severely. She indicates the pain is bilateral flank/hip. Denies any gross hematuria. She has history of stones in the past she passed spontaneously. UA is concerning for UTI. Review of CT from 2019 showed a 1.4 cm left hyperdense renal lesion Review of Systems - Constitutional Denies chills, Denies fever - EENT Ears, nose, mouth and throat: Denies dysphagia - Cardiovascular Denies chest pain, Denies shortness of breath - Respiratory Denies cough, Denies 7 - Gastrointestinal Reports abdominal pain, Denies nausea, Denies vomiting - Genitourinary Genitourinary: Reports flank pain, Reports kidney stones, Denies hematuria - Integumentary Denies rash, Denies unusual bruising - Neurological Denies headaches, Denies syncope Past Medical History Past Medical History: Asthma, Diabetes Mellitus, Eye Disorder, Hyperlipidemia, Hypertension, Osteoarthritis (OA), Thyroid Disorder Additional Past Medical History / Comment(s): PAST HX OF ASTHMA. HX KIDNEY STONES. HX TB W/ TREATMENT. GENE CATARACTS. History of Any Multi-Drug Resistant Organisms: None Reported Past Surgical History: Bariatric Surgery, Hysterectomy, Joint Replacement Additional Past Surgical History / Comment(s): GENE TOTAL KNEE, GASTROPLASTY, BREAST REDUCTION. Past Anesthesia/Blood Transfusion Reactions: No Reported Reaction Past Psychological History: Anxiety, Depression Smoking Status: Never smoker Past Alcohol Use History: Rare Past Drug Use History: None Reported - Past Family History Father Family Medical History: Cancer Additional Family Medical History / Comment(s): parkinsons Mother Family Medical History: Deep Vein Thrombosis (DVT) Additional Family Medical History / Comment(s): POSSIBLE DVT, UNSURE Medications and Allergies Home Medications Medication Instructions Recorded Confirmed Type Cholecalciferol [Vitamin D3 (25 50 mcg PO DAILY 10/09/18 06/12/20 History Mcg = 1000 Iu)] Folic Acid 0.4 mg PO DAILY 10/09/18 06/12/20 History Multivit-Min/FA/Lycopen/Lutein 1 each PO DAILY 10/09/18 06/12/20 History [Centrum Silver Tablet] Atorvastatin [Lipitor] 80 mg PO DAILY 06/12/20 06/12/20 History Vit C/E/Zn/Coppr/Lutein/Zeaxan 1 tab PO DAILY 06/12/20 06/12/20 History [Preservision Areds 2 Softgel] metFORMIN HCL [Glucophage] 500 mg PO BID 06/12/20 06/12/20 History Apixaban [Eliquis] 5 mg PO BID #60 tab 06/14/20 Rx Cefuroxime Axetil [Ceftin] 500 mg PO BID #14 tab 06/14/20 Rx Metoprolol Tartrate [Lopressor] 25 mg PO BID #60 tab 06/14/20 Rx lisinopriL [Zestril] 10 mg PO DAILY #30 tab 06/14/20 Rx Allergies Allergy/AdvReac Type Severity Reaction Status Date / Time No Known Allergies Allergy Verified 06/12/20 19:44 Surgical - Exam Vital Signs Temp Pulse Resp BP Pulse Ox 100.8 F H 93 18 125/72 99 06/12/20 18:34 06/12/20 18:34 06/12/20 18:34 06/12/20 18:34 06/12/20 18:34 - General well developed, well nourished, no distress, moderate pain - Eyes PERRL, normal ocular movement - ENT normal nares, normal mucosa - Respiratory normal expansion, normal respiratory effort - Psychiatric oriented to time, oriented to person, oriented to place Results - Labs 06/14/20 11:26 06/14/20 11:26 Abnormal Lab Results - Last 24 Hours (Table) 06/14/20 06/14/20 06/14/20 Range/Units 07:31 07:31 10:46 RBC 3.69 L (3.80-5.40) m/uL Hgb 11.2 L (11.4-16.0) gm/dL Hct 33.3 L (34.0-46.0) % Neutrophils # 8.6 H (1.3-7.7) k/uL Lymphocytes # 0.5 L (1.0-4.8) k/uL Sodium (137-145) mmol/L Chloride 108 H (98-107) mmol/L BUN 33 H (7-17) mg/dL Creatinine 1.56 H (0.52-1.04) mg/dL Glucose (74-99) mg/dL POC Glucose (mg/dL) 107 H (75-99) mg/dL Calcium 8.1 L (8.4-10.2) mg/dL Magnesium (1.6-2.3) mg/dL Total Protein (6.3-8.2) g/dL Albumin (3.5-5.0) g/dL 06/14/20 06/14/20 Range/Units 11:26 11:26 RBC (3.80-5.40) m/uL Hgb (11.4-16.0) gm/dL Hct (34.0-46.0) % Neutrophils # 9.0 H (1.3-7.7) k/uL Lymphocytes # 0.5 L (1.0-4.8) k/uL Sodium 135 L (137-145) mmol/L Chloride (98-107) mmol/L BUN 31 H (7-17) mg/dL Creatinine 1.44 H (0.52-1.04) mg/dL Glucose 101 H (74-99) mg/dL POC Glucose (mg/dL) (75-99) mg/dL Calcium 8.3 L (8.4-10.2) mg/dL Magnesium 2.8 H (1.6-2.3) mg/dL Total Protein 5.3 L (6.3-8.2) g/dL Albumin 2.9 L (3.5-5.0) g/dL Microbiology - Last 24 Hours (Table) 06/12/20 19:29 Blood Culture - Preliminary Blood No Growth after 24 hours 06/12/20 19:14 Blood Culture - Preliminary Blood No Growth after 24 hours 06/12/20 20:13 Urine Culture - Preliminary Urine,Clean Catch Gram Neg Bacilli Diabetes panel 06/14/20 06/14/20 Range/Units 07:31 11:26 Sodium 137 135 L (137-145) mmol/L Potassium 4.5 4.4 (3.5-5.1) mmol/L Chloride 108 H 105 (98-107) mmol/L Carbon Dioxide 23 23 (22-30) mmol/L BUN 33 H 31 H (7-17) mg/dL Creatinine 1.56 H 1.44 H (0.52-1.04) mg/dL Glucose 99 101 H (74-99) mg/dL Calcium 8.1 L 8.3 L (8.4-10.2) mg/dL AST 34 (14-36) U/L ALT 19 (4-34) U/L Alkaline Phosphatase 79 (38-126) U/L Total Protein 5.3 L (6.3-8.2) g/dL Albumin 2.9 L (3.5-5.0) g/dL Thyroid panel 06/14/20 Range/Units 07:31 TSH 1.160 (0.465-4.680) mIU/L Calcium panel 06/14/20 06/14/20 Range/Units 07:31 11:26 Calcium 8.1 L 8.3 L (8.4-10.2) mg/dL Albumin 2.9 L (3.5-5.0) g/dL Pituitary panel 06/14/20 06/14/20 Range/Units 07:31 11:26 Sodium 137 135 L (137-145) mmol/L Potassium 4.5 4.4 (3.5-5.1) mmol/L Chloride 108 H 105 (98-107) mmol/L Carbon Dioxide 23 23 (22-30) mmol/L BUN 33 H 31 H (7-17) mg/dL Creatinine 1.56 H 1.44 H (0.52-1.04) mg/dL Glucose 99 101 H (74-99) mg/dL Calcium 8.1 L 8.3 L (8.4-10.2) mg/dL TSH 1.160 (0.465-4.680) mIU/L Adrenal panel 06/14/20 06/14/20 Range/Units 07:31 11:26 Sodium 137 135 L (137-145) mmol/L Potassium 4.5 4.4 (3.5-5.1) mmol/L Chloride 108 H 105 (98-107) mmol/L Carbon Dioxide 23 23 (22-30) mmol/L BUN 33 H 31 H (7-17) mg/dL Creatinine 1.56 H 1.44 H (0.52-1.04) mg/dL Glucose 99 101 H (74-99) mg/dL Calcium 8.1 L 8.3 L (8.4-10.2) mg/dL Total Bilirubin 0.4 (0.2-1.3) mg/dL AST 34 (14-36) U/L ALT 19 (4-34) U/L Alkaline Phosphatase 79 (38-126) U/L Total Protein 5.3 L (6.3-8.2) g/dL Albumin 2.9 L (3.5-5.0) g/dL Assessment and Plan Assessment: 75-year-old female admitted with weakness, and a UTI. She indicated she past the stone, but still having flank pain, but less severe. -Given her UTI, symptomatic flank and recommend obtaining a CT renal stone prior to discharge. if CT in showed no evidence for obstructive stones then ok for discharge with po antibiotics.
[2020-06-14 16:57] LABS: Glucose,Whole Blood 82 mg/dL (75-99)
[2020-06-14] MEDS: MORPHINE SULFATE 2 MG/ML SYRINGE IVP PRN ×2 (17:42→23:29)
[2020-06-14 17:45] LABS: Hemoglobin A1C 5.8 % (4.0-6.0)
--- NOTE | 2020-06-14 19:36 | CT ---
EXAMINATION TYPE: CT renal stones wo con DATE OF EXAM: 06/14/2020 HISTORY: bilateral hip pain, recent stone passed CT DLP: 790.7 mGycm. Automated Exposure Control for Dose Reduction was Utilized. TECHNIQUE: CT scan of the abdomen and pelvis is performed without oral or IV contrast. COMPARISON: 04/07/2018. FINDINGS: Within the limitations of a non-contrast study, the following observations are made. LUNG BASES: Trace right pleural effusion with adjacent atelectasis. LIVER/GB: No significant abnormality is appreciated. PANCREAS: No significant abnormality is seen. SPLEEN: No significant abnormality is seen. ADRENALS: No significant abnormality is seen. KIDNEYS: Stable 2.2 cm left renal hyperdense cyst. Left renal pelvic ectasia without nephrolithiasis. No right hydronephrosis or nephrolithiasis. BOWEL: Gastric bypass. No bowel obstruction, free air or fluid. Hyperdense material within the contra st, may relate to recent oral contrast administration. GENITAL ORGANS: No gross abnormality seen. LYMPH NODES: No greater than 1cm abdominal or pelvic lymph nodes are appreciated. OSSEOUS STRUCTURES: No acute abnormality is seen. Moderate to severe lumbar spondylosis with L2 and L 3 bony fusion. OTHER: Moderate atherosclerotic disease without aneurysm. IMPRESSION: Left renal pelvic ectasia without nephrolithiasis, may relate to a recently passed stone. Stable hyperdense left renal cyst. Trace right pleural effusion with adjacent atelectasis.
[2020-06-14 20:14] LABS: Glucose,Whole Blood 95 mg/dL (75-99)
--- NOTE | 2020-06-14 23:43 | P.PN ---
Progress Note - Text Progress Note Date: 06/14/20 Chief Complaint: Fever or chills History of presenting complaint: This is a pleasant 75-year-old patient of Dr. Soren Stringer. Chronic stable medical conditions include asthma, diabetes, hypertension, hyperlipidemia, ostial arthritis, hypothyroid. Yesterday she gone shopping and was walking back to her car suddenly she felt the hands to be locking up. She became chilly started freezing. Developed a fever. Also having some suprapubic pressure. Also is having some right flank pain. This morning patient did pass a stone in in the urine that was actively collected in the [facility] Admitted with acute UTI with cystitis and possible mild pyelonephritis associated with kidney stone. Patient did as a kidney stone that was sent for chemical analysis. Placed on IV ceftriaxone and IV fluids. Today-last night patient had an episode of atrial fibrillation with a rapid ve ntricular rate. Converted back to sinus rhythm this morning. code stroke was called earlier today. When I came to see the patient she said she was in a deep slumber and was somewhat startled as she could not sleep last night. She did not complain of any change in speech or focal weakness. Computed tomography scan of the brain was negative. Neurology was consulted. Patient is doing well getting the daytime. That was the evening she started having again increasing abdominal pain as she is passing a stone. Discharged that was plan was canceled. Did the daytime patient had done well with a good oral intake. Review of systems: Was done for constitutional, cardiovascular, GI, pulmonary. relevant finding as above Active Medications Acetaminophen (Acetaminophen Tab 325 Mg Tab) 650 mg PO Q6HR PRN PRN Reason: Mild Pain or Fever > 100.5 Last Admin: 06/14/20 05:02 Dose: 650 mg Documented by: Apixaban (Apixaban 5 Mg Tab) 5 mg PO BID [facility] Last Admin: 06/14/20 20:35 Dose: 5 mg Documented by: Atorvastatin Calcium (Atorvastatin 80 Mg Tab) 80 mg PO DAILY [facility] Last Admin: 06/14/20 09:35 Dose: 80 mg Documented by: Baclofen (Baclofen 10 Mg Tab) 5 mg PO QID PRN PRN Reason: Muscle Spasm Last Admin: 06/14/20 23:32 Dose: 5 mg Documented by: Cholecalciferol (Cholecalciferol 25 Mcg (1000 Iu) Tablet) 50 mcg PO DAILY [facility] Last Admin: 06/14/20 09:35 Dose: 50 mcg Documented by: Ceftriaxone Sodium 1 gm/ (Sodium Chloride) 50 mls @ 100 mls/hr IVPB Q24H [facility] Last Admin: 06/14/20 20:35 Dose: 100 mls/hr Documented by: Sodium Chloride (Saline 0.9%) 1,000 mls @ 100 mls/hr IV .Q10H [facility] Last Admin: 06/14/20 17:14 Dose: Not Given Documented by: Lisinopril (Lisinopril 10 Mg Tab) 10 mg PO DAILY [facility] Metformin HCl (Metformin 500 Mg Tab) 500 mg PO BID [facility] Last Admin: 06/14/20 20:36 Dose: 500 mg Documented by: Metoprolol Tartrate (Metoprolol Tartrate 25 Mg Tab) 25 mg PO BID [facility] Last Admin: 06/14/20 20:35 Dose: 25 mg Documented by: Miscellaneous Information (Magnesium Replacement Protocol 1 Each Misc) 1 each MISCELLANE DAILY PRN; Protocol PRN Reason: Per Protocol Morphine Sulfate (Morphine Sulfate 2 Mg/Ml Syringe) 1 mg IVP Q3H PRN PRN Reason: Pain/Discomfort Last Admin: 06/14/20 23:29 Dose: 1 mg Documented by: Multivitamins (Multivitamins, Thera 1 Each Tab) 1 each PO DAILY [facility] Last Admin: 06/14/20 09:37 Dose: 1 each Documented by: Multivitamins/Minerals (Vit A,C & Z-Kroqis-Qpevpwog 1 Each Tab) 1 each PO DAILY [facility] Last Admin: 06/14/20 09:37 Dose: 1 each Documented by: Ondansetron HCl (Ondansetron 4 Mg/2 Ml Vial) 4 mg IVP Q8HR PRN PRN Reason: Nausea And Vomiting Last Admin: 06/13/20 22:04 Dose: 4 mg Documented by: Pantoprazole Sodium (Pantoprazole 40 Mg Tablet) 40 mg PO AC-BRKFST [facility] Last Admin: 06/14/20 06:25 Dose: 40 mg Documented by: Past medical history to include: Asthma, diabetes, hypertension, hyperlipidemia, osteoarthritis, hypothyroid, kidney stones, bilateral cataracts, bariatric surgery Social history: Lives with her sister. No smoking. Alcohol rarely. Physical examination: VITAL SIGNS: 97.5, 86, 16, 104/68, 96% room air GENERAL: BMI 27, laying in bed, comfortable EYES: Pupils equal. Conjunctiva normal. HEENT: External appearance of nose and ears normal, oral cavity grossly normal. NECK: JVD not raised; masses not palpable. HEART: First and second heart sounds are normal; no edema. LUNGS: Respiratory rate normal; clear to auscultation. ABDOMEN: Soft, no tenderness, liver spleen not palpable, no masses palpable. PSYCH: Alert and oriented x3; mood and affect normal. NEUROLOGICAL: Cranial nerves grossly intact; no facial asymmetry, power and sensation grossly intact. INVESTIGATIONS, reviewed in the clinical context: Carotid Doppler: Unremarkable Computed tomography scan of the brain: No acute 2-D echocardiogram: EF 55-60% June 14: WBC 10.1 hemoglobin 11.7 platelets 258 potassium 4.4 bun 31 and creatinine 1.44 WBC 15.8 hemoglobin 12.6 platelets 384 potassium 4.1 bun 26 creatinine 1.60 UA positive for leukoesterase, WBC EKG tracing personally reviewed by me-normal sinus rhythm Chest x-ray film personally reviewed by me-lung resendiz clear Assessment and plan: -Acute UTI with cystitis with possibly mild pyelonephritis associated with kidney stones. IV fluids, IV ceftriaxone -Diabetes mellitus type 2 continue with Glucophage. Follow Accu-Cheks -Hyperlipidemia, continue with Lipitor -Essential hypertension, continue with lisinopril -Primary osteoarthritis, use Tylenol when necessary -Hypothyroid, continue with Synthroid -Kidney stones-patient passed a kidney stone yesterday.. sent out for chemical analysis. Again this evening patient had increasing flank pain. Found to be from a stone. -Paroxysmal atrial fibrillation with rapid ventricular rate. Now back in sinus rhythm. Started on eliquis, Lopressor 25 mg twice a day. Patient IV ceftriaxone IV fluids. Repeat labs in the morning. Hold discharge. Blood pressures running on the low side. Hold off lisinopril for now.
[2020-06-15] MEDS: MORPHINE SULFATE 2 MG/ML SYRINGE IVP PRN (03:44)
[2020-06-15] MEDS: SODIUM CHLORIDE 0.9% 1,000 ML IV SCH ×2 (05:07→19:53)
[2020-06-15 06:13] LABS: Glucose,Whole Blood 79 mg/dL (75-99)
[2020-06-15] MEDS: PANTOPRAZOLE 40 MG TABLET PO SCH (06:47)
[2020-06-15] MEDS ORDERED: lisinopriL 10 MG TAB PO SCH (09:00)
[2020-06-15] MEDS: APIXABAN 5 MG TAB PO SCH (09:16)
[2020-06-15] MEDS: metFORMIN 500 MG TAB PO SCH (09:16)
[2020-06-15] MEDS: MULTIVITAMINS, THERA 1 EACH TAB PO SCH (09:16)
[2020-06-15] MEDS: ATORVASTATIN 80 MG TAB PO SCH (09:16)
[2020-06-15] MEDS: METOPROLOL TARTRATE 25 MG TAB PO SCH (09:16)
[2020-06-15] MEDS: CHOLECALCIFEROL 25 MCG (1000 IU) TABLET PO SCH (09:16)
[2020-06-15] MEDS: VIT A,C & E-LUTEIN-MINERALS 1 EACH TAB PO SCH (09:17)
[2020-06-15 10:49] LABS: Calcium 8.9 mg/dL (8.4-10.2); Potassium 4.7 mmol/L (3.5-5.1)
[2020-06-15 10:58] LABS: Basophils # (A) 0.1 k/uL (0-0.2); Basophils % (A) 1 %; Eosinophils # (A) 0.2 k/uL (0-0.7); Eosinophils % (A) 2 %; HGB 11.7 gm/dL (11.4-16.0); Lymphocytes # (A) 0.5 k/uL (1.0-4.8); Lymphocytes % (A) 5 %; MCHC 32.4 g/dL (31.0-37.0); MCV 89.7 fL (80.0-100.0); Mean Platelet Volume 8.4; Monocytes # (A) 0.4 k/uL (0-1.0); Monocytes % (A) 4 %; Neutrophils # (A) 8.7 k/uL (1.3-7.7); Neutrophils % (A) 87 %; Platelet Count 274 k/uL (150-450); RBC 4.01 m/uL (3.80-5.40); RDW 13.8 % (11.5-15.5)
[2020-06-15 11:41] LABS: Glucose,Whole Blood 79 mg/dL (75-99)
[2020-06-15 13:27] VITALS: PULSE 74; RESP 16
--- NOTE | 2020-06-15 13:36 | P.PN ---
Subjective Progress Note Date: 06/15/20 Patient was seen for a follow-up. Patient states that she is having some stomach ache, couldn't eat. No further syncopal spells. No more cramps. Objective - Vital Signs Vital signs: Vital Signs Temp 98.6 F 06/14/20 11:43 Pulse 65 06/15/20 04:00 Resp 18 06/15/20 04:00 BP 121/57 06/15/20 04:00 Pulse Ox 94 L 06/15/20 04:00 Intake & Output 06/14/20 06/15/20 06/15/20 18:59 06:59 18:59 Intake Total 980 220 Output Total 600 600 500 Balance 380 -600 -280 Weight 80.5 kg Intake: Oral 980 220 Output: Urine 600 600 500 Other: Voiding Method Toilet # Voids 1 3 - Exam Patient is alert and awake in no distress. Patient states it is May and the year is 2001. She states she is 72 years of age. When I told her that it is not correct, states she is 82 years of age, then states 42. Patient states that I do not keep track of it. She knows name of the current president. Also that she is in [facility] in [place]. No visuospatial apraxia. Speech and language functions are normal. No aphasia or dysarthria. On cranial nerve examination pupils are round and reacting to light, visual resendiz are full, extraocular muscles are intact. Face is symmetric, tongue protrudes the midline. On muscle strength testing there is no pronator drift and the strength is normal in arms and legs distally and proximally, deep tendon reflexes are 2+ and tone and bulk of muscles normal. No ataxia. - Labs CBC & Chem 7: 06/15/20 09:50 06/15/20 09:50 Labs: Abnormal Lab Results - Last 24 Hours (Table) 06/15/20 06/15/20 Range/Units 09:50 09:50 Neutrophils # 8.7 H (1.3-7.7) k/uL Lymphocytes # 0.5 L (1.0-4.8) k/uL Sodium 134 L (137-145) mmol/L BUN 26 H (7-17) mg/dL Creatinine 1.19 H (0.52-1.04) mg/dL Microbiology - Last 24 Hours (Table) 06/12/20 19:29 Blood Culture - Preliminary Blood No Growth after 48 hours 06/12/20 19:14 Blood Culture - Preliminary Blood No Growth after 48 hours 06/12/20 20:13 Urine Culture - Final Urine,Clean Catch Escherichia coli Assessment and Plan Assessment: * Transient disorientation, possibly delirium from UTI, versus physiologic from waking up from sleep, possible from mild encephalopathy. There were no other associated focal symptoms. Therefore TIA appears unlikely. * Acute UTI * New onset atrial fibrillation. * Status post passing renal stone. * Mild renal insufficiency, improving Plan: * Carotid Doppler showed minimal atheromatous plaquing without significant flow limiting stenosis. Antegrade flow in both vertebral arteries. * 2-D echo revealed atrial fibrillation. Left ventricular size is normal. Mild concentric LVH. EF is 55-60%. Trace MR. * Hemoglobin A1c 5.8. * Continue eliquis. * Patient is still slightly delirious with mild disorientation, likely related to UTI. Currently on Rocephin.
[2020-06-15 16:50] LABS: Glucose,Whole Blood 71 mg/dL (75-99)
--- NOTE | 2020-06-15 17:01 | P.PN ---
Subjective Progress Note Date: 06/15/20 Indicated this a.m. the flank pain has resolved. She had a CT scan done yesterday demonstrated some swelling in the renal pelvis without an obstructive stone. Objective - Vital Signs Vital signs: Vital Signs Temp 98.6 F 06/15/20 12:00 Pulse 74 06/15/20 12:00 Resp 16 06/15/20 12:00 BP 158/70 06/15/20 12:00 Pulse Ox 97 06/15/20 12:00 Intake & Output 06/14/20 06/15/20 06/15/20 18:59 06:59 18:59 Intake Total 980 460 Output Total 600 600 900 Balance 380 -600 -440 Weight 80.5 kg Intake: Oral 980 460 Output: Urine 600 600 900 Other: Voiding Method Toilet Toilet # Voids 1 3 - Constitutional General appearance: Present: no acute distress - Psychiatric Psychiatric: Present: A&O x's 3 - Labs CBC & Chem 7: 06/15/20 09:50 06/15/20 09:50 Labs: Abnormal Lab Results - Last 24 Hours (Table) 06/15/20 06/15/20 06/15/20 Range/Units 09:50 09:50 16:49 Neutrophils # 8.7 H (1.3-7.7) k/uL Lymphocytes # 0.5 L (1.0-4.8) k/uL Sodium 134 L (137-145) mmol/L BUN 26 H (7-17) mg/dL Creatinine 1.19 H (0.52-1.04) mg/dL POC Glucose (mg/dL) 71 L (75-99) mg/dL Microbiology - Last 24 Hours (Table) 06/12/20 19:29 Blood Culture - Preliminary Blood No Growth after 48 hours 06/12/20 19:14 Blood Culture - Preliminary Blood No Growth after 48 hours 06/12/20 20:13 Urine Culture - Final Urine,Clean Catch Escherichia coli Assessment and Plan Assessment: 75-year-old female admitted with weakness, and a UTI. He was still having flank pain yesterday, had a CT done yesterday that showed some swelling in the renal pelvis, but no obstructive stone. I reviewed the CT most likely the finding, secondary to recently passed stone. She is okay for discharge from urology standpoint. We'll plan on seeing her as an outpatient in 6 weeks, will plan on obtaining a renal bladder ultrasound prior to her follow-up, to assess the resolution of the swelling in the renal pelvis
[2020-06-15 17:14] LABS: Glucose,Whole Blood 80 mg/dL (75-99)
[2020-06-15 19:27] VITALS: BP 156/71; TEMP 98.5
--- NOTE | 2020-06-16 07:01 | P.DS ---
Providers Date of admission: 06/14/20 23:34 Attending physician: Tuan Hankins Consults: 06/13/20 01:25 Consult Physician Routine Consulting Provider: Mariano Hernandez Consult Reason/Comments: hip pain Do you want consulting provider notified?: Yes, Notify in am 06/14/20 00:00 Consult Physician [id number] Consulting Provider: Alphonse Reyes Consult Reason/Comments: new onset afib with RVR Do you want consulting provider notified?: Yes 06/14/20 07:00 Consult Physician Routine Consulting Provider: David Cope Consult Reason/Comments: Kidney stones Do you want consulting provider notified?: Yes, Notify in am 06/14/20 12:01 Consult Physician Routine Consulting Provider: Amy Dumont Consult Reason/Comments: code stroke Do you want consulting provider notified?: Yes Primary care physician: Soren Stringer [facility] Course: Diagnoses: -Acute UTI with cystitis , improved -Metabolic encephalopathy secondary to above, improved -Acute kidney injury, improved -Renal colic associated with Kidney stones-patient passed a kidney stone -New-onset Paroxysmal atrial fibrillation with rapid ventricular rate. Now back in sinus rhythm. Started on eliquis, Lopressor 25 mg twice a day. -Diabetes mellitus type 2 continue with Glucophage. Follow Accu-Cheks -Hyperlipidemia, continue with Lipitor -Essential hypertension, continue with lisinopril -Primary osteoarthritis, use Tylenol when necessary -Hypothyroid, continue with Synthroid Hospital course: This is a pleasant 75-year-old patient of Dr. Soren Stringer. Chronic stable medical conditions include asthma, diabetes, hypertension, hyperlipidemia, ostteoarthritis, hypothyroid. she went shopping and was walking back to her car suddenly she felt the hands to be locking up. She became chilly started freezing. Developed a fever. Also having some suprapubic pressure. Also is having some right flank pain. Later on patient did pass a stone in in the urine that was actively collected in the hat Admitted with acute UTI with cystitis and associated with kidney stone. Patient did as a kidney stone that was sent for chemical analysis. Patient informed and instructed to follow up with urologist Dr. Carrasco and she agrees Hospital course was complicated by an episode of atrial fibrillation with a rapid ventricular rate. Converted back to sinus rhythm . Eliquis is started and checked the co-pay with rn case manager hospice lorna and she confirmed to me patient got free cupon of Eliquis upon discharge. Risks and benefits of Eliquis including but not limited to bring the plate are explained to the patient and she agrees as benefits more than risks. Patient has been evaluated by building architect, urologist and concrete pump operator who cleared her for discharge as per staff. Patient will be discharged on short course of antibiotic Ceftin. Dose o f lisinopril or to 10 mg daily because she already started on metoprolol and Eliquis for A. fib Problems and management plan were discussed with the patient and he verbalized understanding and acceptance Patient was found stable and can be discharged home however he needs follow-up as an outpatient. Patient was instructed to follow up with PCP Dr. Cabrera within one week and patient agrees Patient also instructed to follow up with Dr. ayala billing manager and she agrees with appointment on 07/[address] Mendoza in 1-2 weeks and she agrees to call and make appointment Physical exam Gen: patient is a AAOx3, no distress CVS: S1-S2, RRR, no murmur Lungs: B/L CTA, no wheezing Abdomen: soft, no distention, no tenderness, positive bowel sounds Extremity: no leg edema or induration Time spent more than 35 minutes Patient Condition at Discharge: Fair Plan - Discharge Summary Discharge Rx Participant: Yes New Discharge Prescriptions: New Metoprolol Tartrate [Lopressor] 25 mg PO BID #60 tab Apixaban [Eliquis] 5 mg PO BID #60 tab Cefuroxime Axetil [Ceftin] 500 mg PO BID #14 tab lisinopriL [Zestril] 10 mg PO DAILY #30 tab Continue Cholecalciferol [Vitamin D3 (25 Mcg = 1000 Iu)] 50 mcg PO DAILY Folic Acid 0.4 mg PO DAILY Multivit-Min/FA/Lycopen/Lutein [Centrum Silver Tablet] 1 each PO DAILY metFORMIN HCL [Glucophage] 500 mg PO BID Atorvastatin [Lipitor] 80 mg PO DAILY Vit C/E/Zn/Coppr/Lutein/Zeaxan [Preservision Areds 2 Softgel] 1 tab PO DAILY Discontinued lisinopriL 40 mg PO DAILY amLODIPine [Norvasc] 5 mg PO DAILY Ibuprofen [Motrin Ib] 200 mg PO BID Discharge Medication List Cholecalciferol [Vitamin D3 (25 Mcg = 1000 Iu)] 50 mcg PO DAILY 10/09/18 [History] Folic Acid 0.4 mg PO DAILY 10/09/18 [History] Multivit-Min/FA/Lycopen/Lutein [Centrum Silver Tablet] 1 each PO DAILY 10/09/18 [History] Atorvastatin [Lipitor] 80 mg PO DAILY 06/12/20 [History] Vit C/E/Zn/Coppr/Lutein/Zeaxan [Preservision Areds 2 Softgel] 1 tab PO DAILY 06/12/20 [History] metFORMIN HCL [Glucophage] 500 mg PO BID 06/12/20 [History] Apixaban [Eliquis] 5 mg PO BID #60 tab 06/14/20 [Rx] Cefuroxime Axetil [Ceftin] 500 mg PO BID #14 tab 06/14/20 [Rx] Metoprolol Tartrate [Lopressor] 25 mg PO BID #60 tab 06/14/20 [Rx] lisinopriL [Zestril] 10 mg PO DAILY #30 tab 06/14/20 [Rx] Follow up Appointment(s)/Referral(s): Surjit Quinones MD [STAFF PHYSICIAN] - 2 Weeks (THE OFFICE WILL CALL WITH FOLLOW UP APPOINTMENT, SPOKE WITH TON AT DESK. building architect ) Brannon Ayala MD [STAFF PHYSICIAN] - 07/05/20 8:40 am Soren Stringer MD [Primary Care Provider] - 06/19/20 9:00 am Patient Instructions/Handouts: Transient Ischemic Attack (DC), A-fib (Atrial Fibrillation) (DC), Kidney Stones (DC) Activity/Diet/Wound Care/Special Instructions: Glucometer and supplies in [facility]. Make sure you fill out the financial assistance form for Eliquis and have physician sign it at follow up appointment and fax to [employer] (fax number on form) to see if you qualify for assistance. Discharge/Stand Alone Forms: Who Do I Call?, Help In The Home Discharge Disposition: HOME SELF-CARE
== END 2020-06-15 20:28 | disposition home or self-care (01) | DRG 308 ==
LOC: EC 18:33 → 6NMEDSUR 22:48 → 6PED 23:10 → 3SCARD 06-13 22:00 → OBSVTOIN 06-14 23:34
PROVIDERS: ADMIT Hospitalist; ATTEND Hospitalist
DX: I48.0 Paroxysmal atrial fibrillation (principal); G93.41 Metabolic encephalopathy; N30.00 Acute cystitis without hematuria; N17.9 Acute kidney failure, unspecified; E11.36 Type 2 diabetes mellitus with diabetic cataract; Z20.822 Contact with and (suspected) exposure to COVID-19; E83.42 Hypomagnesemia; N20.0 Calculus of kidney; I49.1 Atrial premature depolarization; E78.5 Hyperlipidemia, unspecified; H26.9 Unspecified cataract; I10 Essential (primary) hypertension; J45.909 Unspecified asthma, uncomplicated; M19.91 Primary osteoarthritis, unspecified site; E03.9 Hypothyroidism, unspecified; Z79.84 Long term (current) use of oral hypoglycemic drugs; Z79.899 Other long term (current) drug therapy; Z79.01 Long term (current) use of anticoagulants; Z87.442 Personal history of urinary calculi; Z86.11 Personal history of tuberculosis; Z90.710 Acquired absence of both cervix and uterus; Z98.84 Bariatric surgery status; Z96.653 Presence of artificial knee joint, bilateral; Z87.42 Personal history of other diseases of the female genital tract; Z87.2 Personal history of diseases of the skin and subcutaneous tissue; Z86.59 Personal history of other mental and behavioral disorders; Z98.890 Other specified postprocedural states; Z82.0 Family history of epilepsy and other diseases of the nervous system; Z83.2 Family history of diseases of the blood and blood-forming organs and certain disorders involving the immune mechanism; Z80.9 Family history of malignant neoplasm, unspecified
CPT/HCPCS: 36415; 70450; 71045; 73521; 74150; 80048; 80053; 81001; 82365; 82728; 83036; 83605; 83615; 83735; 84145; 84443; 84484; 85025; 85610; 85730; 86140; 87040; 87077; 87086; 87186; 87635; 93005; 93306; 93880; 96374; 96375; 99284; 99285

== ENCOUNTER → 2020-06-19 | Outpatient (CLI) | payer MEDICARE | END | disposition home or self-care (01) | LOC: LABWHC1 11:22 | PROVIDERS: ATTEND Internal Medicine | DX: R41.3 Other amnesia (principal) | CPT/HCPCS: 36415; 82607; 84443 ==